=== PATIENT | female | born 1945 ===

== ENCOUNTER 2016-12-07 03:42 | Emergency (ER) | payer MEDICARE, MEDICAID ==
[2016-12-07 03:58] VITALS: TEMP 97.9; O2SAT 98
[2016-12-07] MEDS ORDERED: Sodium Chloride 0.9% 1,000 ML IV ONE (04:12)
--- NOTE | 2016-12-07 04:12 | C.PDOC ---
History Of Present Illness Patient presents to the ER with a complaint of dysuria and urinary incontinence that has been worsening over the last few days and is worse tonight. Patient also complains of flank pain. Denies fever and chills. Time Seen by Provider: 12/07/16 04:07 Chief Complaint (Nursing): Female Genitourinary History Per: Patient History/Exam Limitations: no limitations Onset/Duration Of Symptoms: Hrs (Worse tonight), Days Current Symptoms Are (Timing): Still Present Context: Other (Urinary symptoms) Severity: Moderate Pain Scale Rating Of: 4 Location Of Pain/Discomfort: Other (Flank) Radiation Of Pain To:: None Quality Of Discomfort: Unable To Describe Associated Symptoms: Urinary Symptoms (Dysuria, incontinence). denies: Fever, Chills Exacerbating Factors: None Alleviating Factors: None Last Bowel Movement: Other (Not known) Additional History Per: Patient Abnormal Vaginal Bleeding: No Past Medical History Reviewed: Historical Data, Nursing Documentation, Vital Signs Vital Signs: Last Vital Signs Temp 97.9 F 12/07/16 03:53 Pulse 93 H 12/07/16 03:53 Resp 20 12/07/16 03:53 BP 136/81 12/07/16 03:53 Pulse Ox 98 12/07/16 06:33 - Medical History PMH: Diabetes, HTN, Hypercholesterolemia, Kidney Stones - [facility] Procedures CLOSURE SKIN & SUBCUTANEOUS NEC (11/10/14) Family History: States: No Known Family Hx - Social History Hx Tobacco Use: No Hx Alcohol Use: No Hx Substance Use: No - Immunization History Hx Tetanus Toxoid Vaccination: No Hx Influenza Vaccination: No Hx Pneumococcal Vaccination: No Review Of Systems Constitutional: Negative for: Fever, Chills Genitourinary: Positive for: Dysuria, Incontinence Musculoskeletal: Positive for: Other (Flank pain) Physical Exam - Physical Exam Appears: Well, Non-toxic Skin: Warm, Dry Oral Mucosa: Moist Chest: Symmetrical, No Tenderness Cardiovascular: Rhythm Regular, No Murmur Respiratory: No Rales, No Rhonchi, No Wheezing Gastrointestinal/Abdominal: Soft, No Tenderness, Other (Right midline colostomy surgical scar.) Back: No CVA Tenderness Neurological/Psych: Oriented x3 ED Course And Treatment - Laboratory Results Result Diagrams: 12/07/16 04:40 12/07/16 04:40 O2 Sat by Pulse Oximetry: 98 (Room air) Pulse Ox Interpretation: Normal - CT Scan/US CT abd/pelvis w/ IV contrast Other Rad Studies (CT/US): Read By Radiologist, Radiology Report Reviewed CT/US Interpretation: IMPRESSION: 1. Cholelithiasis, no CT evidence of acute cholecystitis. 2. Mild distention of renal collecting system without ureteral calculus, probably physiologic secondary. to iliac crossing. 3. Remaining findings as above. Progress Note: Blood work and urinalysis ordered. Toradol IVP, zofran IVP, and IV fluids administered. Reevaluation Time: 06:34 Reassessment Condition: Improved Medical Decision Making Medical Decision Making: Upon provider reevaluation patient is feeling better, is medically stable, and requires no further treatment in the ED at this time. Patient will be discharged home with Rx for macrobid and pyridium . Counseling was provided and all questions were answered regarding diagnosis and need for follow up with Dr alcala. There is agreement to discharge plan. Return if symptoms persist or worsen. Disposition Counseled Patient/Family Regarding: Studies Performed, Diagnosis, Need For Followup, Rx Given - Disposition Referrals: Shaik Alcala MD [Staff Provider] - Disposition: HOME/ ROUTINE Disposition Time: 04:12 Condition: FAIR Prescriptions: Nitrofurantoin Macrocrystals [Macrobid] 1 cap PO BID #14 cap Phenazopyridine HCl [Pyridium] 200 mg PO TID #6 tablet Instructions: Urinary Tract Infection in Women (DC) Print Language: LUXEMBOURGISH - Clinical Impression Clinical Impression: UTI (urinary tract infection) - Scribe Statement The provider has reviewed the documentation as recorded by the Scribdeborah Martinez All medical record entries made by the Scribe were at my direction and personally dictated by me. I have reviewed the chart and agree that the record accurately reflects my personal performance of the history, physical exam, medical decision making, and the department course for this patient. I have also personally directed, reviewed, and agree with the discharge instructions and disposition.
[2016-12-07 04:15] LABS: RBC URINE 1075 /hpf (0-3); URINE BACTERIA OCC (<OCC); URINE BILIRUBIN NEGATIVE (NEGATIVE); URINE BLOOD 3+ (NEGATIVE); URINE COLOR Yellow (YELLOW); URINE GLUCOSE (UA) NORMAL (Normal); URINE KETONE NEGATIVE (NEGATIVE); URINE LEUKOCYTE ESTERASE 3+ Leu/uL (Negative); URINE PROTEIN 2+ mg/dL (NEGATIVE); URINE UROBILINOGEN NORMAL mg/dL (0.2-1.0); WBC URINE 1454 /hpf (0-5)
[2016-12-07] MEDS ORDERED: Piperacillin/Tazobact 3.375 gm 100 ML IVPB STA (04:16)
[2016-12-07] MEDS ORDERED: Piperacillin/Tazobact 3.375 gm 100 ML IVPB ONE (04:36)
[2016-12-07] MEDS ORDERED: Sodium Chloride 0.9% 1,000 ML ONE (04:36)
[2016-12-07 04:48] LABS: BASO # 0.1 K/uL (0.0-0.2); BASO % 0.5 % (0.0-2.0); EOS % 0.3 % (0.0-4.0); HEMATOCRIT 38.3 % (34.0-47.0); LYMPH # 1.9 K/uL (1.0-4.3); LYMPH % 16.2 % (20.0-40.0); MEAN CELL VOLUME 85.5 fL (81.0-99.0); MEAN CORPUSCULAR HEMOGLOBIN 28.4 pg (27.0-31.0); MEAN CORPUSCULAR HGB CONC 33.2 g/dL (33.0-37.0); MEAN PLATELET VOLUME 7.9 fL (7.2-11.7); MONO # 0.9 K/uL (0.0-0.8); MONO % 7.2 % (0.0-10.0); RED CELL DISTRIBUTION WIDTH 13.4 % (11.5-14.5)
[2016-12-07 04:55] LABS: POTASSIUM 4.5 mmol/L (3.6-5.2)
[2016-12-07 04:57] LABS: BILIRUBIN,TOTAL 0.8 mg/dL (0.2-1.3)
[2016-12-07 04:58] LABS: ALB/GLOB RATIO 1.5 (1.0-2.1); CALCIUM 9.9 mg/dl (8.6-10.4)
[2016-12-07] MEDS ORDERED: Iohexol 350mg/ml 100 ML ONE (05:33)
--- NOTE | 2016-12-07 06:30 | CT ---
EXAM: CT Abdomen and Pelvis With Intravenous Contrast CLINICAL HISTORY: 70 years old, female; Pain; Abdominal pain; Prior surgery; Surgery type: Colostomy; Additional info: R flank pain, TECHNIQUE: Axial computed tomography images of the abdomen and pelvis with intravenous contrast. This CT exam was performed using one or more of the following dose reduction techniques: automated exposure control, adjustment of the mA and/or kV according to patient size, and/or use of iterative reconstruction technique. Coronal and sagittal reformatted images were created and reviewed. CONTRAST: 100 mL of [id number] administered intravenously. EXAM DATE/TIME: 12/07/2016 5:09 AM COMPARISON: No relevant prior studies available. FINDINGS: Lower thorax: No acute findings. ABDOMEN: Liver: Fatty liver. Gallbladder and bile ducts: Gallstones. No ductal dilation. Pancreas: Unremarkable. No mass. No ductal dilation. Spleen: Unremarkable. No splenomegaly. Adrenals: Unremarkable. No mass. Kidneys and ureters: Mild distention of renal collecting system up to upper pelvis. No demonstrable ureteral calculus. Symmetrical nephrograms. No hydronephrosis. Stomach and bowel: Right lower quadrant ostomy. No dilatation of small or large bowel. Appendix: Normal. PELVIS: Bladder: Under distended bladder. Reproductive: Unremarkable as visualized. ABDOMEN and PELVIS: Intraperitoneal space: Unremarkable. No free air. No significant fluid collection. Bones/joints: No acute fracture. Soft tissues: Unremarkable. Vasculature: Unremarkable. No abdominal aortic aneurysm. Lymph nodes: No enlarged lymph nodes. Other findings: Scattered surgical clips in left upper and right lower quadrants, pelvis. IMPRESSION: 1. Cholelithiasis, no CT evidence of acute cholecystitis. 2. Mild distention of renal collecting system without ureteral calculus, probably physiologic secondary to iliac crossing. 3. Remaining findings as above.
[2016-12-07 06:48] VITALS: BP 94/55; PULSE 81; RESP 18
== END 2016-12-07 07:18 | disposition home or self-care (01) ==
LOC: C.ER 03:42
DX: N39.0 Urinary tract infection, site not specified (principal)
CPT/HCPCS: 74177; 80053; 81001; 83690; 85025; 85610; 85730; 87086; 87181; 96365; 96375; 99284; J1885; J2405; J2543; J7040; Q9967

== ENCOUNTER 2016-12-28 03:35 | Inpatient (IN) | payer MEDICARE, MEDICAID ==
--- NOTE | 2016-12-28 03:47 | C.PDOC ---
History Of Present Illness Patient presents to the ER with a complaint of sharp, stabbing, right sided abdominal pain since last night. Denies fever or chills. Time Seen by Provider: 12/28/16 03:47 Chief Complaint (Nursing): Abdominal Pain History Per: Patient History/Exam Limitations: no limitations Onset/Duration Of Symptoms: Days (Last night) Current Symptoms Are (Timing): Still Present Severity: Moderate Pain Scale Rating Of: 5 Location Of Pain/Discomfort: RUQ, RLQ Radiation Of Pain To:: None Quality Of Discomfort: Sharp, Stabbing Associated Symptoms: denies: Fever, Chills Exacerbating Factors: None Alleviating Factors: None Recent travel outside of the [place]: No Abnormal Vaginal Bleeding: No Past Medical History Reviewed: Historical Data, Nursing Documentation, Vital Signs Vital Signs: Last Vital Signs Temp 98.8 F 12/28/16 03:46 Pulse 88 12/28/16 03:46 Resp 16 12/28/16 03:46 BP 117/77 12/28/16 03:46 Pulse Ox 97 12/28/16 03:46 - Medical History PMH: Diabetes, HTN, Hypercholesterolemia, Kidney Stones Surgical History: No Surg Hx - [facility] Procedures CLOSURE SKIN & SUBCUTANEOUS NEC (11/10/14) Family History: States: Unknown Family Hx - Social History Hx Tobacco Use: No Hx Alcohol Use: No Hx Substance Use: No - Immunization History Hx Tetanus Toxoid Vaccination: No Hx Influenza Vaccination: No Hx Pneumococcal Vaccination: No Review Of Systems Constitutional: Negative for: Fever, Chills Eyes: Negative for: Pain ENT: Negative for: Throat Pain Cardiovascular: Negative for: Chest Pain Respiratory: Negative for: Shortness of Breath Gastrointestinal: Positive for: Abdominal Pain (Right sided) Genitourinary: Negative for: Dysuria Musculoskeletal: Negative for: Back Pain Skin: Positive for: Jaundice (mild). Negative for: Rash, Lesions, Bruising Neurological: Negative for: Weakness Psych: Negative for: Anxiety Physical Exam - Physical Exam Appears: Non-toxic Skin: Warm, Dry Head: Normacephalic Eye(s): bilateral: Normal Inspection Oral Mucosa: Moist Neck: Supple Chest: Symmetrical, No Tenderness Cardiovascular: Rhythm Regular, No Murmur Respiratory: No Rales, No Rhonchi, No Wheezing Gastrointestinal/Abdominal: Bowel Sounds (Decreased), Soft, Tenderness (right sided), Other (Colostomy on right side, empty bag. Numerous surgical scars.) Back: Normal Inspection Extremity: Normal ROM Extremity: Bilateral: Atraumatic, Normal Color And Temperature Neurological/Psych: Oriented x3 Gait: Steady ED Course And Treatment - Laboratory Results Result Diagrams: 12/28/16 04:24 12/28/16 04:24 Progress Note: Blood work and urinalysis ordered. Pepcid, zofran, morpine and IV fluids administered. Disposition Discussed With Dr.: Yamile Wilder Counseled Patient/Family Regarding: Studies Performed, Diagnosis - Disposition Disposition: HOSPITALIZED Disposition Time: 03:47 Condition: FAIR - POA Present On Arrival: Poor Glycemic Control - Clinical Impression Clinical Impression: Abdominal pain, Jaundice - Scribe Statement The provider has reviewed the documentation as recorded by the Scribdeborah Martinez All medical record entries made by the Nevaibdeborah were at my direction and personally dictated by me. I have reviewed the chart and agree that the record accurately reflects my personal performance of the history, physical exam, medical decision making, and the department course for this patient. I have also personally directed, reviewed, and agree with the discharge instructions and disposition. Decision To Admit - Pt Status Changed To: Hospital Disposition Of: Observation - . Bed Request Type: Regular Admitting Physician: Yamile Wilder Patient Diagnosis: Abdominal pain, Jaundice
[2016-12-28 03:49] VITALS: BMI 34.7
[2016-12-28] MEDS ORDERED: Sodium Chloride 0.9% 1,000 ML IV ONE (03:49)
[2016-12-28] MEDS ORDERED: Morphine 4 MG/ML VIAL ONE (03:59)
[2016-12-28] MEDS ORDERED: Sodium Chloride 0.9% 1,000 ML ONE (04:00)
[2016-12-28 04:27] LABS: BASO # 0.1 K/uL (0.0-0.2); BASO % 0.8 % (0.0-2.0); HEMATOCRIT 35.6 % (34.0-47.0); LYMPH # 1.5 K/uL (1.0-4.3); LYMPH % 17.6 % (20.0-40.0); MEAN CELL VOLUME 84.9 fL (81.0-99.0); MEAN CORPUSCULAR HEMOGLOBIN 29.4 pg (27.0-31.0); MEAN CORPUSCULAR HGB CONC 34.7 g/dL (33.0-37.0); MONO # 0.7 K/uL (0.0-0.8); MONO % 8.6 % (0.0-10.0); RED CELL DISTRIBUTION WIDTH 13.3 % (11.5-14.5); WHITE BLOOD COUNT 8.4 K/uL (4.8-10.8)
[2016-12-28 04:35] LABS: INR 1.1
[2016-12-28 04:38] LABS: CHLORIDE 101 mmol/L (98-107)
[2016-12-28 04:39] LABS: POTASSIUM 5.5 mmol/L (3.6-5.2); SODIUM 134 mmol/L (132-148)
[2016-12-28 04:41] LABS: ALB/GLOB RATIO 1.3 (1.0-2.1); ALKALINE PHOSPHATASE 67 U/L (38-126); AST/SGOT 47 U/L (14-36); BILIRUBIN,TOTAL 1.7 mg/dL (0.2-1.3); BLOOD UREA NITROGEN 13 mg/dL (7-17); CARBON DIOXIDE 22 mmol/L (22-30); GFR AFRICAN-AMERICAN > 60; TOTAL PROTEIN 7.5 g/dL (6.3-8.3)
[2016-12-28 04:42] LABS: ALT/SGPT 41 U/L (9-52); CALCIUM 8.4 mg/dl (8.6-10.4); GLUCOSE,RANDOM 182 mg/dL (65-105)
[2016-12-28 06:41] LABS: RBC URINE 4 /hpf (0-3); URINE BILIRUBIN NEGATIVE (NEGATIVE); URINE BLOOD NEGATIVE (NEGATIVE); URINE COLOR Yellow (YELLOW); URINE GLUCOSE (UA) NORMAL (Normal); URINE KETONE NEGATIVE (NEGATIVE); URINE LEUKOCYTE ESTERASE NEG Leu/uL (Negative); URINE PROTEIN NEGATIVE (NEGATIVE); URINE UROBILINOGEN NORMAL mg/dL (0.2-1.0); WBC URINE 2 /hpf (0-5)
--- NOTE | 2016-12-28 15:52 | RAD ---
PROCEDURE: Radiographs of the chest and abdomen (obstructive series) HISTORY: abd pain, COMPARISON: No prior. TECHNIQUE: AP radiograph of the chest, with upright and supine radiographs of the abdomen. FINDINGS: CHEST: Lungs: Clear. Cardiovascular: Normal size heart. No pulmonary vascular congestion. Pleura: No pleural fluid. No pneumothorax. Other findings: None. ABDOMEN AND PELVIS: Bowel: No evidence of bowel obstruction. There is a generalized paucity of bowel gas. There is no hepatic or splenic enlargement appreciated. There are no masses or abnormal intra-abdominal calcifications. Multiple surgical clips are identified. Free air: None. Bones: Unremarkable. Other findings: None. IMPRESSION: Unremarkable radiographs of chest and abdomen. No evidence of mechanical bowel obstruction.
--- NOTE | 2016-12-28 16:01 | CP.PCM.CON ---
<Corinna Seymour - Last Filed: 12/28/16 16:44> History of Present Illness - History of Present Illness History of Present Illness: Gastroenterology Fellow/PGY4 Consult Note 71 year old female with history of Hypertension, Diabetes, and Hyperlipidemia presenting with abdominal pain. Patient is a poor history and hard of hearing failed attempts at history taking via son by telephone and Luv Rinkracom interpretation. Nursing staff assisted with attempted history taking below. Patient is oriented to person, place, and time. She describes progressive, right upper abdomen stabbing pain radiating to back since "yesterday after taking antibiotics from ER visit December 07 for an Ecoli UTI. Associated only with chills. Denies fever, sweats, nausea, vomiting, heartburn, indigestion, acid reflux, diarrhea, constipation, melena, hematochezia, hematemesis, or weight loss. She does not answering additional questioning with frequent change in topic from current inpatient stay. She is concerned her symptoms are similar to a "bad infection" 37 years ago leading to colostomy bag endorsed to be performed at [facility]. Prior colonoscopy endorsed to be prior to colostomy surgery 37 years ago. No prior EGD. Family- nephew with colostomy, cancer history unknown Social- denies tobacco, alcohol, illicit drugs Surgery- colostomy, Review of Systems - Review of Systems Review of Systems: A 12-point review of systems negative except for as above Past Patient History - Infectious Disease Hx of Infectious Diseases: None - Past Medical History & Family History Past Medical History?: Yes - Past Social History Smoking Status: Never Smoked - CARDIAC Hx Hypercholesterolemia: Yes Hx Hypertension: Yes - PULMONARY Hx Respiratory Disorders: No - NEUROLOGICAL Hx Dizziness: Yes - HEENT Hx Blind: Yes - RENAL Hx Kidney Stones: Yes - ENDOCRINE/METABOLIC Hx Diabetes Mellitus Type 2: Yes - HEMATOLOGICAL/ONCOLOGICAL Hx Blood Disorders: No - INTEGUMENTARY Hx Dermatological Problems: No - MUSCULOSKELETAL/RHEUMATOLOGICAL Hx Falls: Yes - GASTROINTESTINAL Hx Colostomy: Yes - GENITOURINARY/GYNECOLOGICAL Hx Genitourinary Disorders: No Hx Urinary Tract Infection: Yes - PSYCHIATRIC Hx Substance Use: No - SURGICAL HISTORY Hx Surgeries: Yes Other/Comment: Colostomy more than 37 yrs ago - ANESTHESIA Hx Anesthesia: Yes Hx Anesthesia Reactions: No Hx Malignant Hyperthermia: No Meds Allergies/Adverse Reactions: Allergies Allergy/AdvReac Type Severity Reaction Status Date / Time No Known Allergies Allergy Verified 10/11/15 19:37 - Medications Medications: Current Medications Fenofibrate (Tricor) 145 mg PO DAILY [facility] Home Med (Simvastatin [Simvastatin]) 1 tab PO DAILY [facility] Dextrose/Sodium Chloride (Dextrose 5%/0.45% Ns 1000 Ml) 1,000 mls @ 75 mls/hr IV .[id number] [facility] Losartan Potassium (Cozaar) 25 mg PO DAILY [facility] Metformin HCl (Glucophage) 500 mg PO BIDCC [facility] Morphine Sulfate (Morphine) 2 mg IVP Q4 PRN PRN Reason: Pain, moderate (4-7) Ondansetron HCl (Zofran Inj) 4 mg IVP Q6H PRN PRN Reason: Nausea/Vomiting Pantoprazole Sodium (Protonix Ec Tab) 40 mg PO DAILY [facility] Sitagliptin Phosphate (Januvia) 50 mg PO BID [facility] Physical Exam - Constitutional Appears: Non-toxic, No Acute Distress - Head Exam Head Exam: ATRAUMATIC, NORMOCEPHALIC - Eye Exam Eye Exam: EOMI, PERRL Pupil Exam: PERRL. absent: Miosis, Mydriatic - ENT Exam ENT Exam: Mucous Membranes Moist, Normal Oropharynx - Neck Exam Neck exam: Positive for: Full Rom, Normal Inspection - Respiratory Exam Respiratory Exam: Clear to Auscultation Bilateral. absent: Rales, Rhonchi, Wheezes - Cardiovascular Exam Cardiovascular Exam: RRR, +S1, +S2. absent: Gallop, Rubs - GI/Abdominal Exam GI & Abdominal Exam: Guarding, Normal Bowel Sounds, Soft, Tenderness. absent: Distended, Firm, Organomegaly, Rebound, Rigid Additional comments: RUQ tenderness to palpation, RLQ colostomy with soft green stool, stoma with pink hue, vertical surgical scar - Extremities Exam Extremities exam: Positive for: full ROM, pedal edema - Neurological Exam Neurological exam: Alert, Oriented x3 - Psychiatric Exam Psychiatric exam: Normal Affect, Normal Mood - Skin Skin Exam: Dry, Intact, Normal Color, Warm Results - Vital Signs Recent Vital Signs: Last Vital Signs Temp 98.7 F 12/28/16 06:44 Pulse 72 12/28/16 06:44 Resp 20 12/28/16 06:44 BP 123/49 L 12/28/16 06:44 Pulse Ox 95 12/28/16 06:44 - Labs Result Diagrams: 12/28/16 04:24 12/28/16 04:24 Labs: Laboratory Results - last 24 hr 12/28/16 12/28/16 12/28/16 06:29 12:42 12:42 POC Glucose (mg/dL) 168 H 168 H Urine Color Yellow Urine Clarity Clear Urine pH 7.0 Ur Specific [place] 1.016 Urine Protein Negative Urine Glucose (UA) Normal Urine Ketones Negative Urine Blood Negative Urine Nitrate Negative Urine Bilirubin Negative Urine Urobilinogen Normal Ur Leukocyte Esterase Neg Urine WBC (Auto) 2 Urine RBC (Auto) 4 H Ur Squamous Epith Cells 1 Assessment & Plan - Assessment and Plan (Free Text) Assessment: 71 year old female with history of Hypertension, Diabetes, and Hyperlipidemia presenting with right upper abdomen pain. CT A/P IV contrast 12/07/16 showed gallstones and hepatic steatosis. Laboratory findings show hyperbilirubinemia and mildly elevated AST. Prior colonoscopy endorsed during hospitalization prior to colostomy surgery 37 years ago. No prior EGD. Plan: >Ultrasound ordered with history of gallstones >evaluate for cholecystitis and choledocholithiasis >ordered direct bilirubin, Hepatitis panel >LFTs tomorrow >ordered C diff, stool culture, fecal leukocytes with recent antibiotics >supportive care: pain control, IVFs >further recommendations based on ultrasound results <Bruce Peralta Y - Last Filed: 12/28/16 16:59> Meds - Medications Medications: Current Medications Fenofibrate (Tricor) 145 mg PO DAILY [facility] Dextrose/Sodium Chloride (Dextrose 5%/0.45% Ns 1000 Ml) 1,000 mls @ 75 mls/hr IV .[id number] [facility] Losartan Potassium (Cozaar) 25 mg PO DAILY [facility] Metformin HCl (Glucophage) 500 mg PO BIDCC [facility] Morphine Sulfate (Morphine) 2 mg IVP Q4 PRN PRN Reason: Pain, moderate (4-7) Ondansetron HCl (Zofran Inj) 4 mg IVP Q6H PRN PRN Reason: Nausea/Vomiting Pantoprazole Sodium (Protonix Ec Tab) 40 mg PO DAILY [facility] Rosuvastatin Calcium (Crestor) 2.5 mg PO HS [facility] Sitagliptin Phosphate (Januvia) 50 mg PO BID [facility] Results - Vital Signs Recent Vital Signs: Last Vital Signs Temp 98.7 F 12/28/16 06:44 Pulse 72 12/28/16 06:44 Resp 20 12/28/16 06:44 BP 123/49 L 12/28/16 06:44 Pulse Ox 95 12/28/16 06:44 - Labs Result Diagrams: 12/28/16 04:24 12/28/16 04:24 Labs: Laboratory Results - last 24 hr 12/28/16 12/28/16 12/28/16 06:29 12:42 12:42 POC Glucose (mg/dL) 168 H 168 H Urine Color Yellow Urine Clarity Clear Urine pH 7.0 Ur Specific [place] 1.016 Urine Protein Negative Urine Glucose (UA) Normal Urine Ketones Negative Urine Blood Negative Urine Nitrate Negative Urine Bilirubin Negative Urine Urobilinogen Normal Ur Leukocyte Esterase Neg Urine WBC (Auto) 2 Urine RBC (Auto) 4 H Ur Squamous Epith Cells 1 Attending/Attestation - Attestation I have personally seen and examined this patient.: Yes I have fully participated in the care of the patient.: Yes I have reviewed all pertinent clinical information: Yes Notes (Text): 12/28/16 16:52 I have seen and examined patient with GI fellow. Agree with above documentation with the following additions. In brief, this is a 71 year old female with history of DM, HTN, hyperlipidemia, prior colon resection for unknown cause s/p colostomy who presents to hospital with complaint of sudden onset abdominal pain. She describes a sharp, intermittent RUQ abdominal pain, 5 /10 intensity that began yesterday and radiates to back. There does not seem to be any relation to food consumption and she otherwise denies nausea, vomiting , diarrhea, fever/chills, weight loss, blood in stool, or change in bowel habits. Earlier this month she took antibiotic therapy for a UTI. Unclear regarding prior endoscopic history. DM / HTN Hyperlipidemia Right upper quadrant abdominal pain, transaminitis - Liquid diet as tolerated - Obtain abdominal US for further evaluation of gallbladder and biliary tree - Continue to monitor LFTs - Pain control - Obtain viral hepatitis panel and fractionate bilirubin - Pending results of studies, may consider surgical consultation - Will continue to monitor patient clinical course
[2016-12-28] MEDS: Dextrose 5%/0.45% NS 1,000 ML IV SCH (17:13)
[2016-12-28] MEDS: Pantoprazole 40 mg EC Tab PO SCH (17:13)
--- NOTE | 2016-12-28 18:58 | CP.PCM.HP ---
History of Present Illness - History of Present Illness History of Present Illness: 71-year-old female patient with past medical history of hypertension, diabetes and hyperlipidemia presented to the ER with complaint of abdominal pain. Patient is poor historian and hard of hearing failed attempt at history taking well son by telephone and THYMEracom interpretation. Nursing staff assisted with attempted history taking below. Patient is oriented to place, person and time. Patient described progressive, right upper abdomen stabbing pain radiating into back since yesterday after taking antibiotics from ER visit December 07 for an E. coli UTI. Associated only with chills. Denies fever, sweats, nausea, vomiting, heartburn, indigestion, acid reflux, diarrhea, constipation, melena, hematochezia, hematemesis or weight loss. Present on Admission - Present on Admission Any Indicators Present on Admission: No Past Patient History - Infectious Disease Hx of Infectious Diseases: None - Past Medical History & Family History Past Medical History?: Yes - Past Social History Smoking Status: Never Smoked - CARDIAC Hx Hypercholesterolemia: Yes Hx Hypertension: Yes - PULMONARY Hx Respiratory Disorders: No - NEUROLOGICAL Hx Dizziness: Yes - HEENT Hx Blind: Yes - RENAL Hx Kidney Stones: Yes - ENDOCRINE/METABOLIC Hx Diabetes Mellitus Type 2: Yes - HEMATOLOGICAL/ONCOLOGICAL Hx Blood Disorders: No - INTEGUMENTARY Hx Dermatological Problems: No - MUSCULOSKELETAL/RHEUMATOLOGICAL Hx Falls: Yes - GASTROINTESTINAL Hx Colostomy: Yes - GENITOURINARY/GYNECOLOGICAL Hx Genitourinary Disorders: No Hx Urinary Tract Infection: Yes - PSYCHIATRIC Hx Substance Use: No - SURGICAL HISTORY Hx Surgeries: Yes Other/Comment: Colostomy more than 37 yrs ago - ANESTHESIA Hx Anesthesia: Yes Hx Anesthesia Reactions: No Hx Malignant Hyperthermia: No Meds Home Medications: Home Medication List Medication Instructions Recorded Confirmed Type Ciprofloxacin [Cipro] 500 mg PO BID #14 tab 01/02/17 Rx metroNIDAZOLE [Flagyl] 500 mg PO Q8 #21 tab 01/02/17 Rx Allergies/Adverse Reactions: Allergies Allergy/AdvReac Type Severity Reaction Status Date / Time No Known Allergies Allergy Verified 10/11/15 19:37 Physical Exam - Constitutional Appears: Well - Head Exam Head Exam: ATRAUMATIC, NORMAL INSPECTION, NORMOCEPHALIC - Eye Exam Eye Exam: EOMI, Normal appearance, PERRL Pupil Exam: NORMAL ACCOMODATION, PERRL - ENT Exam ENT Exam: Mucous Membranes Moist, Normal Exam - Neck Exam Neck exam: Positive for: Normal Inspection - Respiratory Exam Respiratory Exam: Decreased Breath Sounds - Cardiovascular Exam Cardiovascular Exam: REGULAR RHYTHM, +S1, +S2 - GI/Abdominal Exam GI & Abdominal Exam: Diminished Bowel Sounds, Soft - Rectal Exam Rectal Exam: Deferred Results - Vital Signs Recent Vital Signs: Last Vital Signs Temp 98.7 F 12/28/16 16:00 Pulse 76 12/28/16 16:00 Resp 20 12/28/16 16:00 BP 154/75 H 12/28/16 16:00 Pulse Ox 95 12/28/16 16:00 - Labs Result Diagrams: 01/02/17 12:05 01/02/17 12:31 Labs: Laboratory Results - last 24 hr 12/28/16 12/28/16 12/28/16 06:29 12:42 12:42 POC Glucose (mg/dL) 168 H 168 H Urine Color Yellow Urine Clarity Clear Urine pH 7.0 Ur Specific [place] 1.016 Urine Protein Negative Urine Glucose (UA) Normal Urine Ketones Negative Urine Blood Negative Urine Nitrate Negative Urine Bilirubin Negative Urine Urobilinogen Normal Ur Leukocyte Esterase Neg Urine WBC (Auto) 2 Urine RBC (Auto) 4 H Ur Squamous Epith Cells 1 12/28/16 17:07 POC Glucose (mg/dL) 195 H Urine Color Urine Clarity Urine pH Ur Specific [place] Urine Protein Urine Glucose (UA) Urine Ketones Urine Blood Urine Nitrate Urine Bilirubin Urine Urobilinogen Ur Leukocyte Esterase Urine WBC (Auto) Urine RBC (Auto) Ur Squamous Epith Cells Assessment & Plan (1) Abdominal pain Status: Acute (2) Bronchitis Status: Acute (3) Headache Status: Acute (4) Influenza-like illness Status: Acute (5) Jaundice Status: Acute (6) Removal of andria Status: Acute (7) Syncope Status: Acute (8) UTI (urinary tract infection) Status: Acute - Assessment and Plan (Free Text) Plan: Consult GI USG abdomen findings concerning for acute cholecystitis, impacted gallstone, pericholecystic fluid and positive sonographic Estrada sign TriCor IV fluid Cozaar Morphine Zofran Protonix
[2016-12-28 19:52] LABS: BILIRUBIN,DIRECT 0.6 mg/dL (0.0-0.4)
[2016-12-28] MEDS: Rosuvastatin Calcium 2.5 mg Tab PO SCH (22:09)
[2016-12-29] MEDS: Dextrose 5%/0.45% NS 1,000 ML IV SCH ×2 (04:05→17:51)
[2016-12-29] MEDS: Pantoprazole 40 mg EC Tab PO SCH (10:26)
--- NOTE | 2016-12-29 11:15 | CP.PCM.PN ---
Subjective - Date & Time of Evaluation Date of Evaluation: 12/29/16 Time of Evaluation: 11:10 - Subjective Subjective: Patient seen and examined. No acute events. C/o RUQ abdominal pain. Colostomy with liquid green/bilious output. She is tolerating liquid diet. ROS otherwise negative in detail Objective - Vital Signs/Intake and Output Vital Signs (last 24 hours): Temp Pulse Resp BP Pulse Ox 98.7 F 81 20 129/61 95 12/29/16 07:09 12/29/16 07:09 12/29/16 07:09 12/29/16 07:09 12/29/16 07:09 Intake and Output: 12/29/16 12/29/16 06:59 18:59 Intake Total 1360 Balance 1360 - Medications Medications: Current Medications Fenofibrate (Tricor) 145 mg PO DAILY [facility] Last Admin: 12/29/16 10:25 Dose: 145 mg Dextrose/Sodium Chloride (Dextrose 5%/0.45% Ns 1000 Ml) 1,000 mls @ 75 mls/hr IV .[id number] [facility] Last Admin: 12/29/16 04:05 Dose: Not Given Losartan Potassium (Cozaar) 25 mg PO DAILY [facility] Last Admin: 12/29/16 10:26 Dose: 25 mg Metformin HCl (Glucophage) 500 mg PO BIDCC [facility] Last Admin: 12/29/16 08:45 Dose: 500 mg Morphine Sulfate (Morphine) 2 mg IVP Q4 PRN PRN Reason: Pain, moderate (4-7) Last Admin: 12/29/16 10:34 Dose: 2 mg Ondansetron HCl (Zofran Inj) 4 mg IVP Q6H PRN PRN Reason: Nausea/Vomiting Pantoprazole Sodium (Protonix Ec Tab) 40 mg PO DAILY [facility] Last Admin: 12/29/16 10:26 Dose: 40 mg Rosuvastatin Calcium (Crestor) 2.5 mg PO HS [facility] Last Admin: 12/28/16 22:09 Dose: 2.5 mg Sitagliptin Phosphate (Januvia) 50 mg PO BID [facility] Last Admin: 12/29/16 10:25 Dose: 50 mg - Labs Labs: PT 12.0 SECONDS (9.7-12.2) 12/28/16 04:24 INR 1.1 12/28/16 04:24 APTT 30 SECONDS (21-34) 12/28/16 04:24 - Constitutional Appears: No Acute Distress - Eye Exam Eye Exam: absent: Scleral icterus - ENT Exam ENT Exam: Mucous Membranes Moist - Respiratory Exam Respiratory Exam: Clear to Ausculation Bilateral - Cardiovascular Exam Cardiovascular Exam: +S1, +S2 - GI/Abdominal Exam Additional comments: abdomen soft, +RUQ tenderness to palpation, +colostomy with bilious output, multiple well healed surgical scars - Extremities Exam Extremities Exam: absent: Pedal Edema - Back Exam Back Exam: absent: CVA tenderness (L), CVA tenderness (R) - Neurological Exam Neurological Exam: Alert, Oriented x3 - Skin Skin Exam: Dry Assessment and Plan - Assessment and Plan (Free Text) Assessment: 71 year old female with history of HTN, DM, HL, colostomy who presents with RUQ abdominal pain. Plan: Continue supportive care Follow up LFTs Awaiting results of abdominal sonogram Antiemetic as needed Pain control as needed Further recommendations pending sonogram results
--- NOTE | 2016-12-29 13:48 | CP.PCM.PN ---
Subjective - Date & Time of Evaluation Date of Evaluation: 12/29/16 Time of Evaluation: 10:40 - Subjective Subjective: clinically same Objective - Vital Signs/Intake and Output Vital Signs (last 24 hours): Temp Pulse Resp BP Pulse Ox 98.7 F 81 20 129/61 95 12/29/16 07:09 12/29/16 07:09 12/29/16 07:09 12/29/16 07:09 12/29/16 07:09 Intake and Output: 12/29/16 12/29/16 06:59 18:59 Intake Total 1360 Balance 1360 - Medications Medications: Current Medications Fenofibrate (Tricor) 145 mg PO DAILY [facility] Last Admin: 12/29/16 10:25 Dose: 145 mg Dextrose/Sodium Chloride (Dextrose 5%/0.45% Ns 1000 Ml) 1,000 mls @ 75 mls/hr IV .[id number] [facility] Last Admin: 12/29/16 04:05 Dose: Not Given Losartan Potassium (Cozaar) 25 mg PO DAILY [facility] Last Admin: 12/29/16 10:26 Dose: 25 mg [facility] ([facility]) [facility] Last Admin: 12/29/16 08:45 Dose: 500 mg Morphine Sulfate (Morphine) 2 mg IVP Q4 PRN PRN Reason: Pain, moderate (4-7) Last Admin: 12/29/16 10:34 Dose: 2 mg Ondansetron HCl (Zofran Inj) 4 mg IVP Q6H PRN PRN Reason: Nausea/Vomiting Pantoprazole Sodium (Protonix Ec Tab) 40 mg PO DAILY [facility] Last Admin: 12/29/16 10:26 Dose: 40 mg Rosuvastatin Calcium (Crestor) 2.5 mg PO HS [facility] Last Admin: 12/28/16 22:09 Dose: 2.5 mg Sitagliptin Phosphate (Januvia) 50 mg PO BID [facility] Last Admin: 12/29/16 10:25 Dose: 50 mg - Labs Labs: PT 12.0 SECONDS (9.7-12.2) 12/28/16 04:24 INR 1.1 12/28/16 04:24 APTT 30 SECONDS (21-34) 12/28/16 04:24 - Constitutional Appears: Well - Head Exam Head Exam: ATRAUMATIC, NORMAL INSPECTION, NORMOCEPHALIC - Eye Exam Eye Exam: EOMI, Normal appearance, PERRL Pupil Exam: NORMAL ACCOMODATION, PERRL - ENT Exam ENT Exam: Mucous Membranes Moist, Normal Exam - Neck Exam Neck Exam: Full ROM, Normal Inspection. absent: Lymphadenopathy - Respiratory Exam Respiratory Exam: Decreased Breath Sounds - Cardiovascular Exam Cardiovascular Exam: REGULAR RHYTHM, +S1, +S2 - GI/Abdominal Exam GI & Abdominal Exam: Soft, Diminished Bowel Sounds - Rectal Exam Rectal Exam: Deferred Assessment and Plan (1) Abdominal pain Status: Acute (2) Bronchitis Status: Acute (3) Headache Status: Acute (4) Influenza-like illness Status: Acute (5) Jaundice Status: Acute (6) Removal of andria Status: Acute (7) Syncope Status: Acute (8) UTI (urinary tract infection) Status: Acute - Assessment and Plan (Free Text) Plan: Follow-up with GI Follow-up with general surgeon Follow-up with LFT [facility] IV fluid IV antibiotic Cozaar Morphine Zofran
[2016-12-29] MEDS: Piperacillin/Tazobact 3.375 GM in Sodium Chloride 100 ML IVPB SCH ×2 (16:57→22:50)
--- NOTE | 2016-12-29 16:57 | CP.PCM.CON ---
<Renee Schmitt - Last Filed: 12/29/16 17:07> History of Present Illness - History of Present Illness History of Present Illness: GENERAL SURGERY CONSULT NOTE FOR DR. NESS 71yo F with PMHx of DM, HTN, cholelithiasis presented to the ED on 12/28/16 with RUQ abdominal pain that began 1 day prior. Patient is a poor historian. Information was obtained from patient using manager games, from her son, and from the EMR. The pain is located in the RUQ and radiates to the right back. She denies nausea or vomiting. She thought the pain was gas related. The output into her ostomy has been normal. The pain is still present but has improved since her admission. The pain is unrelated to food. Of note, patient was seen in the ED on 12/07 for UTI and given antibiotics. She had one episode of pain after taking yogurt during the antibiotics but the pain resolved. PMHx: DM, HTN, hyperlipidemia, kidney stones, cholelithiasis Surgeries: , "bad infection" leading to colon resection and RLQ colostomy Allergies: none Social history: occasional tobacco use when drinks Review of Systems - Review of Systems All systems: reviewed and no additional remarkable complaints except (as per HPI ) Past Patient History - Infectious Disease Hx of Infectious Diseases: None - Past Medical History & Family History Past Medical History?: Yes - Past Social History Smoking Status: Never Smoked - CARDIAC Hx Hypercholesterolemia: Yes Hx Hypertension: Yes - PULMONARY Hx Respiratory Disorders: No - NEUROLOGICAL Hx Dizziness: Yes - HEENT Hx Blind: Yes - RENAL Hx Kidney Stones: Yes - ENDOCRINE/METABOLIC Hx Diabetes Mellitus Type 2: Yes - HEMATOLOGICAL/ONCOLOGICAL Hx Blood Disorders: No - INTEGUMENTARY Hx Dermatological Problems: No - MUSCULOSKELETAL/RHEUMATOLOGICAL Hx Falls: Yes - GASTROINTESTINAL Hx Colostomy: Yes - GENITOURINARY/GYNECOLOGICAL Hx Genitourinary Disorders: No Hx Urinary Tract Infection: Yes - PSYCHIATRIC Hx Substance Use: No - SURGICAL HISTORY Hx Surgeries: Yes Other/Comment: Colostomy more than 37 yrs ago - ANESTHESIA Hx Anesthesia: Yes Hx Anesthesia Reactions: No Hx Malignant Hyperthermia: No Meds Allergies/Adverse Reactions: Allergies Allergy/AdvReac Type Severity Reaction Status Date / Time No Known Allergies Allergy Verified 10/11/15 19:37 - Medications Medications: Current Medications Fenofibrate (Tricor) 145 mg PO DAILY [facility] Last Admin: 12/29/16 10:25 Dose: 145 mg Dextrose/Sodium Chloride (Dextrose 5%/0.45% Ns 1000 Ml) 1,000 mls @ 75 mls/hr IV .[id number] [facility] Last Admin: 12/29/16 04:05 Dose: Not Given Piperacillin Sod/Tazobactam (Sod 3.375 gm/ Sodium Chloride) 100 mls @ 200 mls/ hr IVPB Q6H [facility] Losartan Potassium (Cozaar) 25 mg PO DAILY [facility] Last Admin: 12/29/16 10:26 Dose: 25 mg [facility] Last Admin: 12/29/16 08:45 Dose: 500 mg Morphine Sulfate (Morphine) 2 mg IVP Q4 PRN PRN Reason: Pain, moderate (4-7) Last Admin: 12/29/16 10:34 Dose: 2 mg Ondansetron HCl (Zofran Inj) 4 mg IVP Q6H PRN PRN Reason: Nausea/Vomiting Pantoprazole Sodium (Protonix Ec Tab) 40 mg PO DAILY [facility] Last Admin: 12/29/16 10:26 Dose: 40 mg Rosuvastatin Calcium (Crestor) 2.5 mg PO HS [facility] Last Admin: 12/28/16 22:09 Dose: 2.5 mg Sitagliptin Phosphate (Januvia) 50 mg PO BID [facility] Last Admin: 12/29/16 10:25 Dose: 50 mg Physical Exam - Constitutional Appears: Non-toxic, No Acute Distress - Eye Exam Eye Exam: EOMI, Normal appearance - Respiratory Exam Respiratory Exam: NORMAL BREATHING PATTERN. absent: Respiratory Distress - Cardiovascular Exam Cardiovascular Exam: +S1, +S2 - GI/Abdominal Exam GI & Abdominal Exam: Soft, Tenderness (tender in RUQ). absent: Distended, Firm , Guarding, Rebound, Rigid Additional comments: Well healed midline abdominal scar RLQ ostomy with stool in bag + Estrada's sign - Back Exam Back exam: NORMAL INSPECTION - Neurological Exam Neurological exam: Alert, CN II-XII Intact, Oriented x3 - Psychiatric Exam Psychiatric exam: Normal Affect, Normal Mood - Skin Skin Exam: Normal Color, Warm Results - Vital Signs Recent Vital Signs: Last Vital Signs Temp 98.2 F 12/29/16 16:00 Pulse 80 12/29/16 16:00 Resp 18 12/29/16 16:00 BP 118/61 12/29/16 16:00 Pulse Ox 94 L 12/29/16 16:00 - Labs Result Diagrams: 12/28/16 04:24 12/28/16 04:24 Labs: Laboratory Results - last 24 hr 12/28/16 12/28/16 12/28/16 17:07 19:37 21:17 POC Glucose (mg/dL) 195 H 223 H Direct Bilirubin 0.6 H Amylase 80 Lipase Hepatitis A IgM Ab Hep Bs Antigen Hep B Core IgM Ab Hepatitis C Antibody 12/29/16 12/29/16 12/29/16 06:43 07:25 07:25 POC Glucose (mg/dL) 211 H Direct Bilirubin Amylase Lipase 98 Hepatitis A IgM Ab Negative Hep Bs Antigen Negative Hep B Core IgM Ab Negative Hepatitis C Antibody Negative Assessment & Plan - Assessment and Plan (Free Text) Assessment: 71yo F with PMHx of DM, HTN, cholelithiasis presented with RUQ abdominal pain and was found to have cholecystitis, hyperbilirubinemia r/o choledocholithiasis - Afebrile, VSS - No leukocytosis - T bili elevated at 1.7 - AST slightly elevated at 47 - Hepatitis panel negative - US: cholelithiasis, calculus impacted in gallbladder neck, marked thickening of gallbladder wall, up to 4mm, pericholecystic fluid, CBD 5mm. - MRCP ordered - Continue IV Zosyn - Discussed plan with Dr. Grover Schmitt PGY-2 <Devan Ness - Last Filed: 01/01/17 18:38> Meds - Medications Medications: Current Medications Fenofibrate (Tricor) 145 mg PO DAILY [facility] Last Admin: 01/01/17 09:07 Dose: 145 mg Piperacillin Sod/Tazobactam (Sod 3.375 gm/ Sodium Chloride) 100 mls @ 200 mls/ hr IVPB Q6H [facility] Last Admin: 01/01/17 11:25 Dose: 200 mls/hr Losartan Potassium (Cozaar) 25 mg PO DAILY [facility] Last Admin: 01/01/17 09:08 Dose: 25 mg Metformin HCl (Glucophage) 500 mg PO BIDCC [facility] Last Admin: 01/01/17 07:33 Dose: 500 mg Ondansetron HCl (Zofran Inj) 4 mg IVP Q6H PRN PRN Reason: Nausea/Vomiting Pantoprazole Sodium (Protonix Ec Tab) 40 mg PO DAILY [facility] Last Admin: 01/01/17 09:08 Dose: 40 mg Rosuvastatin Calcium (Crestor) 2.5 mg PO HS [facility] Last Admin: 12/31/16 22:05 Dose: 2.5 mg Sitagliptin Phosphate (Januvia) 50 mg PO BID [facility] Last Admin: 01/01/17 09:08 Dose: 50 mg Results - Vital Signs Recent Vital Signs: Last Vital Signs Temp 97.9 F 01/01/17 15:46 Pulse 73 01/01/17 15:46 Resp 20 01/01/17 15:46 BP 124/63 01/01/17 15:46 Pulse Ox 98 01/01/17 15:46 - Labs Result Diagrams: 12/31/16 11:44 12/31/16 11:44 Labs: Laboratory Results - last 24 hr 12/31/16 01/01/17 01/01/17 21:52 06:17 11:13 POC Glucose (mg/dL) 143 H 149 H 196 H 01/01/17 15:56 POC Glucose (mg/dL) 164 H Attending/Attestation - Attestation I have personally seen and examined this patient.: Yes I have fully participated in the care of the patient.: Yes I have reviewed all pertinent clinical information: Yes Notes (Text): 01/01/17 18:36 Pt was seen and examined at bedside on 12/30/16 Agree with above note and assessment Pt with Cholelithiasis with Abnormal LFTs Repeat LFTs, Possible MRCP Plan d.w pt in detail. C.w current mx
[2016-12-29 17:36] LABS: BASO % 0.4 % (0.0-2.0); EOS % 0.1 % (0.0-4.0); HEMATOCRIT 37.7 % (34.0-47.0); MEAN CELL VOLUME 85.8 fL (81.0-99.0); MEAN CORPUSCULAR HEMOGLOBIN 28.6 pg (27.0-31.0); MEAN CORPUSCULAR HGB CONC 33.4 g/dL (33.0-37.0); MEAN PLATELET VOLUME 8.3 fL (7.2-11.7); MONO # 1.2 K/uL (0.0-0.8); MONO % 10.9 % (0.0-10.0); RED CELL DISTRIBUTION WIDTH 12.9 % (11.5-14.5); WHITE BLOOD COUNT 11.3 K/uL (4.8-10.8)
[2016-12-29] MEDS: Rosuvastatin Calcium 2.5 mg Tab PO SCH (21:55)
[2016-12-29 22:55] LABS: CHLORIDE 100 mmol/L (98-107); INR 1.2; POTASSIUM 3.7 mmol/L (3.6-5.2); SODIUM 132 mmol/L (132-148)
[2016-12-29 22:57] LABS: GFR AFRICAN-AMERICAN > 60
[2016-12-29 22:58] LABS: ALB/GLOB RATIO 1.1 (1.0-2.1); ALKALINE PHOSPHATASE 57 U/L (38-126); ALT/SGPT 38 U/L (9-52); AST/SGOT 18 U/L (14-36); BLOOD UREA NITROGEN 6 mg/dL (7-17); CARBON DIOXIDE 24 mmol/L (22-30); GLUCOSE,RANDOM 315 mg/dL (65-105); TOTAL PROTEIN 5.9 g/dL (6.3-8.3)
[2016-12-29 22:59] LABS: CALCIUM 7.9 mg/dl (8.6-10.4)
[2016-12-30] MEDS: Piperacillin/Tazobact 3.375 GM in Sodium Chloride 100 ML IVPB SCH ×4 (04:32→22:18)
[2016-12-30] MEDS: Dextrose 5%/0.45% NS 1,000 ML IV SCH ×2 (06:30→22:20)
[2016-12-30 07:53] LABS: BASO % 0.5 % (0.0-2.0); EOS % 0.2 % (0.0-4.0); HEMATOCRIT 34.7 % (34.0-47.0); LYMPH # 1.4 K/uL (1.0-4.3); LYMPH % 20.4 % (20.0-40.0); MEAN CELL VOLUME 85.1 fL (81.0-99.0); MEAN CORPUSCULAR HEMOGLOBIN 29.1 pg (27.0-31.0); MEAN CORPUSCULAR HGB CONC 34.2 g/dL (33.0-37.0); MEAN PLATELET VOLUME 8.1 fL (7.2-11.7); MONO # 0.8 K/uL (0.0-0.8); MONO % 11.2 % (0.0-10.0); NRBC % 0.1 % (0.0-2.0); RED CELL DISTRIBUTION WIDTH 13.4 % (11.5-14.5); WHITE BLOOD COUNT 6.9 K/uL (4.8-10.8)
[2016-12-30 08:00] LABS: CHLORIDE 103 mmol/L (98-107)
[2016-12-30 08:01] LABS: POTASSIUM 3.8 mmol/L (3.6-5.2); SODIUM 136 mmol/L (132-148)
[2016-12-30 08:03] LABS: ALKALINE PHOSPHATASE 51 U/L (38-126); ALT/SGPT 27 U/L (9-52); AST/SGOT 20 U/L (14-36); BILIRUBIN,TOTAL 0.9 mg/dL (0.2-1.3); BLOOD UREA NITROGEN 8 mg/dL (7-17); CARBON DIOXIDE 22 mmol/L (22-30); GFR AFRICAN-AMERICAN > 60
[2016-12-30 08:04] LABS: CALCIUM 8.1 mg/dl (8.6-10.4); GLUCOSE,RANDOM 168 mg/dL (65-105)
--- NOTE | 2016-12-30 08:06 | CP.PCM.PN ---
<DawnCorinna - Last Filed: 12/30/16 09:51> Subjective - Date & Time of Evaluation Date of Evaluation: 12/30/16 Time of Evaluation: 08:03 - Subjective Subjective: Gastroenterology Fellow/PGY4 Progress Note Patient slept well. Continues to have right upper abdomen pin, Notes colostomy full with watery green stool and requesting change of bag. A 12-point review of systems negative except for as above. Objective - Vital Signs/Intake and Output Vital Signs (last 24 hours): Temp Pulse Resp BP Pulse Ox 98.3 F 72 20 130/68 97 12/30/16 07:20 12/30/16 07:20 12/30/16 07:20 12/30/16 07:20 12/30/16 07:20 Intake and Output: 12/30/16 12/30/16 06:59 18:59 Intake Total 560 Balance 560 - Medications Medications: Current Medications Fenofibrate (Tricor) 145 mg PO DAILY [facility] Last Admin: 12/29/16 10:25 Dose: 145 mg Dextrose/Sodium Chloride (Dextrose 5%/0.45% Ns 1000 Ml) 1,000 mls @ 75 mls/hr IV .[id number] [facility] Last Admin: 12/30/16 06:30 Dose: Not Given Piperacillin Sod/Tazobactam (Sod 3.375 gm/ Sodium Chloride) 100 mls @ 200 mls/ hr IVPB Q6H [facility] Last Admin: 12/30/16 04:32 Dose: 200 mls/hr Losartan Potassium (Cozaar) 25 mg PO DAILY [facility] Last Admin: 12/29/16 10:26 Dose: 25 mg Metformin HCl (Glucophage) 500 mg PO BIDCC [facility] Last Admin: 12/29/16 16:57 Dose: 500 mg Morphine Sulfate (Morphine) 2 mg IVP Q4 PRN PRN Reason: Pain, moderate (4-7) Last Admin: 12/29/16 22:00 Dose: 2 mg Ondansetron HCl (Zofran Inj) 4 mg IVP Q6H PRN PRN Reason: Nausea/Vomiting Pantoprazole Sodium (Protonix Ec Tab) 40 mg PO DAILY [facility] Last Admin: 12/29/16 10:26 Dose: 40 mg Rosuvastatin Calcium (Crestor) 2.5 mg PO HS [facility] Last Admin: 12/29/16 21:55 Dose: 2.5 mg Sitagliptin Phosphate (Januvia) 50 mg PO BID [facility] Last Admin: 12/29/16 17:49 Dose: 50 mg - Labs Labs: 12/30/16 07:11 12/29/16 22:35 PT 13.7 SECONDS (9.7-12.2) H 12/29/16 22:35 INR 1.2 12/29/16 22:35 APTT 31 SECONDS (21-34) 12/29/16 22:35 - Constitutional Appears: Non-toxic, No Acute Distress - Head Exam Head Exam: ATRAUMATIC, NORMOCEPHALIC - Eye Exam Eye Exam: EOMI, PERRL Pupil Exam: PERRL. absent: Miosis, Mydriatic - ENT Exam ENT Exam: Mucous Membranes Moist, Normal Oropharynx - Neck Exam Neck Exam: Full ROM, Normal Inspection - Respiratory Exam Respiratory Exam: Clear to Ausculation Bilateral. absent: Rales, Rhonchi, Wheezes - Cardiovascular Exam Cardiovascular Exam: RRR, +S1, +S2. absent: Gallop, Rubs - GI/Abdominal Exam GI & Abdominal Exam: Soft, Tenderness, Normal Bowel Sounds. absent: Distended, Firm, Guarding, Rigid, Rebound Additional comments: RUQ tenderness, colostomy RLQ with watery green stool - Extremities Exam Extremities Exam: Normal Inspection, Pedal Edema - Neurological Exam Neurological Exam: Alert, Awake - Psychiatric Exam Psychiatric exam: Normal Affect, Normal Mood - Skin Skin Exam: Dry, Intact, Normal Color, Warm Assessment and Plan - Assessment and Plan (Free Text) Assessment: 71 year old female with history of Hypertension, Diabetes, and Hyperlipidemia presenting with right upper abdomen pain. CT A/P IV contrast 12/07/16 showed gallstones and hepatic steatosis. Laboratory findings show hyperbilirubinemia and mildly elevated AST. Prior colonoscopy endorsed during hospitalization prior to colostomy surgery 37 years ago. No prior EGD. Plan: >Ultrasound taken,pending reprort >clinicla suspicion of cholecystitis >surgery managing-pending MRCP >Hepatitis panel negative >pending C diff, stool culture, fecal leukocytes with recent antibiotics >supportive care: pain control, IVFs >further recommendations based on MRCP results <Bruce Peralta Y - Last Filed: 12/30/16 10:00> Objective - Vital Signs/Intake and Output Vital Signs (last 24 hours): Temp Pulse Resp BP Pulse Ox 98.3 F 72 20 130/68 97 12/30/16 07:20 12/30/16 07:20 12/30/16 07:20 12/30/16 07:20 12/30/16 07:20 Intake and Output: 12/30/16 12/30/16 06:59 18:59 Intake Total 560 Balance 560 - Medications Medications: Current Medications Fenofibrate (Tricor) 145 mg PO DAILY [facility] Last Admin: 12/30/16 09:10 Dose: 145 mg Dextrose/Sodium Chloride (Dextrose 5%/0.45% Ns 1000 Ml) 1,000 mls @ 75 mls/hr IV .[id number] [facility] Last Admin: 12/30/16 06:30 Dose: Not Given Piperacillin Sod/Tazobactam (Sod 3.375 gm/ Sodium Chloride) 100 mls @ 200 mls/ hr IVPB Q6H [facility] Last Admin: 12/30/16 04:32 Dose: 200 mls/hr Losartan Potassium (Cozaar) 25 mg PO DAILY [facility] Last Admin: 12/30/16 09:10 Dose: 25 mg Metformin HCl (Glucophage) 500 mg PO BIDCC [facility] Last Admin: 12/30/16 08:51 Dose: Not Given Morphine Sulfate (Morphine) 2 mg IVP Q4 PRN PRN Reason: Pain, moderate (4-7) Last Admin: 12/29/16 22:00 Dose: 2 mg Ondansetron HCl (Zofran Inj) 4 mg IVP Q6H PRN PRN Reason: Nausea/Vomiting Pantoprazole Sodium (Protonix Ec Tab) 40 mg PO DAILY [facility] Last Admin: 12/30/16 09:13 Dose: 40 mg Rosuvastatin Calcium (Crestor) 2.5 mg PO HS [facility] Last Admin: 12/29/16 21:55 Dose: 2.5 mg Sitagliptin Phosphate (Januvia) 50 mg PO BID [facility] Last Admin: 12/30/16 09:00 Dose: Not Given - Labs Labs: 12/30/16 07:11 12/30/16 07:11 PT 13.7 SECONDS (9.7-12.2) H 12/29/16 22:35 INR 1.2 12/29/16 22:35 APTT 31 SECONDS (21-34) 12/29/16 22:35 Attending/Attestation - Attestation I have personally seen and examined this patient.: Yes I have fully participated in the care of the patient.: Yes I have reviewed all pertinent clinical information, including history, physical exam and plan: Yes Notes (Text): 12/30/16 09:56 I have seen and examined patient with GI fellow. No acute events overnight. She is seen resting in bed comfortably watching television. She continues to endorse RUQ abdominal pain, though slightly improved compared to prior. She denies nausea, vomiting, fever/chills. Review of vitals from today are normal. DM / HTN history of colostomy, unclear etiology Abdominal pain, cholelithiasis, ?cholecystitis - Continue with antibiotic therapy - Liquid diet, advance slowly as tolerated - Patient apparently had abdominal US performed with findings suspicious for acute cholecystitis, however report not available to be viewed - MRCP ordered by surgical team, however low probability of choledocholithiasis given completely normal LFTs, bilirubin - Follow up surgical recommendations - Will continue to monitor patient clinical course
[2016-12-30] MEDS: Pantoprazole 40 mg EC Tab PO SCH (09:13)
--- NOTE | 2016-12-30 10:42 | CP.PCM.PN ---
<Renee Schmitt - Last Filed: 12/30/16 16:11> Subjective - Date & Time of Evaluation Date of Evaluation: 12/30/16 Time of Evaluation: 07:00 - Subjective Subjective: GENERAL SURGERY PROGRESS NOTE FOR DR. NESS Patient seen and examined at bedside. She has mild RUQ abdominal pain but states it has improved from before. She denies nausea or vomiting. Objective - Vital Signs/Intake and Output Vital Signs (last 24 hours): Temp Pulse Resp BP Pulse Ox 98.3 F 72 20 130/68 97 12/30/16 07:20 12/30/16 07:20 12/30/16 07:20 12/30/16 07:20 12/30/16 07:20 Intake and Output: 12/30/16 12/30/16 06:59 18:59 Intake Total 560 Balance 560 - Medications Medications: Current Medications Fenofibrate (Tricor) 145 mg PO DAILY [facility] Last Admin: 12/30/16 09:10 Dose: 145 mg Dextrose/Sodium Chloride (Dextrose 5%/0.45% Ns 1000 Ml) 1,000 mls @ 75 mls/hr IV .[id number] [facility] Last Admin: 12/30/16 06:30 Dose: Not Given Piperacillin Sod/Tazobactam (Sod 3.375 gm/ Sodium Chloride) 100 mls @ 200 mls/ hr IVPB Q6H [facility] Last Admin: 12/30/16 04:32 Dose: 200 mls/hr Losartan Potassium (Cozaar) 25 mg PO DAILY [facility] Last Admin: 12/30/16 09:10 Dose: 25 mg Metformin HCl (Glucophage) 500 mg PO BIDCC [facility] Last Admin: 12/30/16 08:51 Dose: Not Given Morphine Sulfate (Morphine) 2 mg IVP Q4 PRN PRN Reason: Pain, moderate (4-7) Last Admin: 12/29/16 22:00 Dose: 2 mg Ondansetron HCl (Zofran Inj) 4 mg IVP Q6H PRN PRN Reason: Nausea/Vomiting Pantoprazole Sodium (Protonix Ec Tab) 40 mg PO DAILY [facility] Last Admin: 12/30/16 09:13 Dose: 40 mg Rosuvastatin Calcium (Crestor) 2.5 mg PO HS [facility] Last Admin: 12/29/16 21:55 Dose: 2.5 mg Sitagliptin Phosphate (Januvia) 50 mg PO BID [facility] Last Admin: 12/30/16 09:00 Dose: Not Given - Labs Labs: 12/30/16 07:11 12/30/16 07:11 PT 13.7 SECONDS (9.7-12.2) H 12/29/16 22:35 INR 1.2 12/29/16 22:35 APTT 31 SECONDS (21-34) 12/29/16 22:35 - Constitutional Appears: Non-toxic, No Acute Distress - Eye Exam Eye Exam: EOMI, Normal appearance - Respiratory Exam Respiratory Exam: NORMAL BREATHING PATTERN. absent: Respiratory Distress - Cardiovascular Exam Cardiovascular Exam: +S1, +S2 - GI/Abdominal Exam GI & Abdominal Exam: Soft, Tenderness (tender in RUQ). absent: Distended, Firm , Guarding, Rigid, Rebound Additional comments: RLQ ostomy in place with liquid stool in bag - Neurological Exam Neurological Exam: Alert, Awake, Oriented x3 - Psychiatric Exam Psychiatric exam: Normal Affect, Normal Mood - Skin Skin Exam: Normal Color, Warm Assessment and Plan - Assessment and Plan (Free Text) Assessment: 71yo F with PMHx of DM, HTN, cholelithiasis presented with RUQ abdominal pain and was found to have cholecystitis - Afebrile, VSS - No leukocytosis - T bili originally elevated at 1.7, now WNL - Hepatitis panel negative - US: cholelithiasis, calculus impacted in gallbladder neck, marked thickening of gallbladder wall, up to 10mm, pericholecystic fluid, CBD 5mm. - Canceled order for MRCP as bilirubin WNL the past 2 days. - Continue IV Zosyn, will treat patient with antibiotics for now and if continues to improve, will do outpatient elective cholecystectomy - If patient does not improve, will need impatient cholecystectomy - Clear liquid diet - Discussed plan with Dr. Grover Schmitt PGY-2 <Devan Ness - Last Filed: 01/01/17 18:39> Objective - Vital Signs/Intake and Output Vital Signs (last 24 hours): Temp Pulse Resp BP Pulse Ox 97.9 F 73 20 124/63 98 01/01/17 15:46 01/01/17 15:46 01/01/17 15:46 01/01/17 15:46 01/01/17 15:46 Intake and Output: 01/01/17 01/01/17 06:59 18:59 Intake Total 1275 Output Total 100 Balance 1175 - Medications Medications: Current Medications Fenofibrate (Tricor) 145 mg PO DAILY [facility] Last Admin: 01/01/17 09:07 Dose: 145 mg Piperacillin Sod/Tazobactam (Sod 3.375 gm/ Sodium Chloride) 100 mls @ 200 mls/ hr IVPB Q6H [facility] Last Admin: 01/01/17 11:25 Dose: 200 mls/hr Losartan Potassium (Cozaar) 25 mg PO DAILY [facility] Last Admin: 01/01/17 09:08 Dose: 25 mg Metformin HCl (Glucophage) 500 mg PO BIDCC [facility] Last Admin: 01/01/17 07:33 Dose: 500 mg Ondansetron HCl (Zofran Inj) 4 mg IVP Q6H PRN PRN Reason: Nausea/Vomiting Pantoprazole Sodium (Protonix Ec Tab) 40 mg PO DAILY [facility] Last Admin: 01/01/17 09:08 Dose: 40 mg Rosuvastatin Calcium (Crestor) 2.5 mg PO HS [facility] Last Admin: 12/31/16 22:05 Dose: 2.5 mg Sitagliptin Phosphate (Januvia) 50 mg PO BID [facility] Last Admin: 01/01/17 09:08 Dose: 50 mg - Labs Labs: 12/31/16 11:44 12/31/16 11:44 PT 13.7 SECONDS (9.7-12.2) H 12/29/16 22:35 INR 1.2 12/29/16 22:35 APTT 31 SECONDS (21-34) 12/29/16 22:35 Attending/Attestation - Attestation I have personally seen and examined this patient.: Yes I have fully participated in the care of the patient.: Yes I have reviewed all pertinent clinical information, including history, physical exam and plan: Yes Notes (Text): 01/01/17 18:39 Pt was seen and examined at bedside on 12/30/16 Agree with above note and assessment Pt with Cholelithiasis with Abnormal LFTs Repeat LFTs, Possible MRCP Plan d.w pt in detail. C.w current mx
--- NOTE | 2016-12-30 13:32 | CP.PCM.PN ---
Subjective - Date & Time of Evaluation Date of Evaluation: 12/30/16 Time of Evaluation: 10:00 - Subjective Subjective: clinically same Objective - Vital Signs/Intake and Output Vital Signs (last 24 hours): Temp Pulse Resp BP Pulse Ox 98.3 F 72 20 130/68 97 12/30/16 07:20 12/30/16 07:20 12/30/16 07:20 12/30/16 07:20 12/30/16 07:20 Intake and Output: 12/30/16 12/30/16 06:59 18:59 Intake Total 560 Balance 560 - Medications Medications: Current Medications Fenofibrate (Tricor) 145 mg PO DAILY [facility] Last Admin: 12/30/16 09:10 Dose: 145 mg Dextrose/Sodium Chloride (Dextrose 5%/0.45% Ns 1000 Ml) 1,000 mls @ 75 mls/hr IV .[id number] [facility] Last Admin: 12/30/16 06:30 Dose: Not Given Piperacillin Sod/Tazobactam (Sod 3.375 gm/ Sodium Chloride) 100 mls @ 200 mls/ hr IVPB Q6H [facility] Last Admin: 12/30/16 10:56 Dose: 200 mls/hr Losartan Potassium (Cozaar) 25 mg PO DAILY [facility] Last Admin: 12/30/16 09:10 Dose: [facility] mg [facility] Last Admin: 12/30/16 08:51 Dose: Not Given Morphine Sulfate (Morphine) 2 mg IVP Q4 PRN PRN Reason: Pain, moderate (4-7) Last Admin: 12/30/16 11:02 Dose: 2 mg Ondansetron HCl (Zofran Inj) 4 mg IVP Q6H PRN PRN Reason: Nausea/Vomiting Pantoprazole Sodium (Protonix Ec Tab) 40 mg PO DAILY [facility] Last Admin: 12/30/16 09:13 Dose: 40 mg Rosuvastatin Calcium (Crestor) 2.5 mg PO HS [facility] Last Admin: 12/29/16 21:55 Dose: 2.5 mg Sitagliptin Phosphate (Januvia) 50 mg PO BID [facility] Last Admin: 12/30/16 09:00 Dose: Not Given - Labs Labs: 12/30/16 07:11 12/30/16 07:11 PT 13.7 SECONDS (9.7-12.2) H 12/29/16 22:35 INR 1.2 12/29/16 22:35 APTT 31 SECONDS (21-34) 12/29/16 22:35 - Constitutional Appears: Well - Head Exam Head Exam: ATRAUMATIC, NORMAL INSPECTION, NORMOCEPHALIC - Eye Exam Eye Exam: EOMI, Normal appearance, PERRL Pupil Exam: NORMAL ACCOMODATION, PERRL - ENT Exam ENT Exam: Mucous Membranes Moist, Normal Exam - Neck Exam Neck Exam: Full ROM, Normal Inspection. absent: Lymphadenopathy - Respiratory Exam Respiratory Exam: Decreased Breath Sounds - Cardiovascular Exam Cardiovascular Exam: +S1, +S2 - GI/Abdominal Exam GI & Abdominal Exam: Soft, Diminished Bowel Sounds - Rectal Exam Rectal Exam: Deferred Assessment and Plan (1) Abdominal pain Status: Acute (2) Bronchitis Status: Acute (3) Headache Status: Acute (4) Influenza-like illness Status: Acute (5) Jaundice Status: Acute (6) Removal of andria Status: Acute (7) Syncope Status: Acute (8) UTI (urinary tract infection) Status: Acute - Assessment and Plan (Free Text) Plan: Follow-up with GI Follow-up with general surgeon Hepatitis panel negative TriCor IV fluid IV antibiotic Cozaar Morphine Zofran Proton
[2016-12-30] MEDS: Rosuvastatin Calcium 2.5 mg Tab PO SCH (22:18)
[2016-12-31] MEDS: Piperacillin/Tazobact 3.375 GM in Sodium Chloride 100 ML IVPB SCH ×4 (05:08→22:08)
--- NOTE | 2016-12-31 07:30 | CP.PCM.PN ---
<Corinna Seymour - Last Filed: 12/31/16 09:07> Subjective - Date & Time of Evaluation Date of Evaluation: 12/31/16 Time of Evaluation: : - Subjective Subjective: Gastroenterology Fellow/PGY4 Progress Note Patient slept well. Notes slight improvement in abdominal pain. Watery green stool present in colostomy. A 12-point review of systems negative except for as above. Objective - Vital Signs/Intake and Output Vital Signs (last 24 hours): Temp Pulse Resp BP Pulse Ox 98.1 F 81 20 105/68 96 12/31/16 06:56 12/31/16 06:56 12/31/16 06:56 12/31/16 06:56 12/31/16 06:56 - Medications Medications: Current Medications Fenofibrate (Tricor) 145 mg PO DAILY [facility] Last Admin: 12/30/16 09:10 Dose: 145 mg Dextrose/Sodium Chloride (Dextrose 5%/0.45% Ns 1000 Ml) 1,000 mls @ 75 mls/hr IV .[id number] [facility] Last Admin: 12/30/16 22:20 Dose: 75 mls/hr Piperacillin Sod/Tazobactam (Sod 3.375 gm/ Sodium Chloride) 100 mls @ 200 mls/ hr IVPB Q6H [facility] Last Admin: 12/31/16 05:08 Dose: 200 mls/hr Losartan Potassium (Cozaar) 25 mg PO DAILY [facility] Last Admin: 12/30/16 09:10 Dose: 25 mg Metformin HCl (Glucophage) 500 mg PO BIDCC [facility] Last Admin: 12/30/16 17:13 Dose: 500 mg Morphine Sulfate (Morphine) 2 mg IVP Q4 PRN PRN Reason: Pain, moderate (4-7) Last Admin: 12/30/16 22:59 Dose: 2 mg Ondansetron HCl (Zofran Inj) 4 mg IVP Q6H PRN PRN Reason: Nausea/Vomiting Pantoprazole Sodium (Protonix Ec Tab) 40 mg PO DAILY [facility] Last Admin: 12/30/16 09:13 Dose: 40 mg Rosuvastatin Calcium (Crestor) 2.5 mg PO HS [facility] Last Admin: 12/30/16 22:18 Dose: 2.5 mg Sitagliptin Phosphate (Januvia) 50 mg PO BID [facility] Last Admin: 12/30/16 17:13 Dose: 50 mg - Labs Labs: PT 13.7 SECONDS (9.7-12.2) H 12/29/16 22:35 INR 1.2 12/29/16 22:35 APTT 31 SECONDS (21-34) 12/29/16 22:35 - Constitutional Appears: Non-toxic, No Acute Distress - Head Exam Head Exam: ATRAUMATIC, NORMOCEPHALIC - Eye Exam Eye Exam: EOMI, PERRL Pupil Exam: PERRL. absent: Miosis, Mydriatic - ENT Exam ENT Exam: Mucous Membranes Moist, Normal Oropharynx - Neck Exam Neck Exam: Full ROM, Normal Inspection - Respiratory Exam Respiratory Exam: Clear to Ausculation Bilateral. absent: Rales, Rhonchi, Wheezes - Cardiovascular Exam Cardiovascular Exam: RRR, +S1, +S2. absent: Gallop, Rubs - GI/Abdominal Exam GI & Abdominal Exam: Soft, Tenderness, Normal Bowel Sounds. absent: Distended, Firm, Guarding, Rigid, Organomegaly, Rebound Additional comments: RUQ tenderness to palpation, RLQ colostomy C/D/I, green watery stool preesnt, stoma with pink hue - Extremities Exam Extremities Exam: Normal Inspection, Pedal Edema - Neurological Exam Neurological Exam: Alert, Awake - Psychiatric Exam Psychiatric exam: Normal Affect, Normal Mood - Skin Skin Exam: Dry, Intact, Normal Color, Warm Assessment and Plan - Assessment and Plan (Free Text) Assessment: 71 year old female with history of Hypertension, Diabetes, and Hyperlipidemia presenting with right upper abdomen pain. CT A/P IV contrast 12/07/16 showed gallstones and hepatic steatosis. Laboratory findings show improved hyperbilirubinemia and mildly elevated AST. Prior colonoscopy endorsed during hospitalization prior to colostomy surgery 37 years ago. No prior EGD. Plan: >Ultrasound-cholelithiasis with gallbladder neck stone, cholecystitis, no choledocholithiasis >surgery managing-MRCP cancelled, outpatient versus inpatient cholecystectomy >tolerating clear liquid diet >supportive care: pain control >thank you for opportunity to participate in the care of this patient <Bruce Peralta - Last Filed: 12/31/16 09:12> Objective - Vital Signs/Intake and Output Vital Signs (last 24 hours): Temp Pulse Resp BP Pulse Ox 97.9 F 74 20 131/82 96 12/31/16 08:09 12/31/16 08:09 12/31/16 08:09 12/31/16 08:09 12/31/16 08:09 - Medications Medications: Current Medications Fenofibrate (Tricor) 145 mg PO DAILY [facility] Last Admin: 12/30/16 09:10 Dose: 145 mg Dextrose/Sodium Chloride (Dextrose 5%/0.45% Ns 1000 Ml) 1,000 mls @ 75 mls/hr IV .[id number] [facility] Last Admin: 12/30/16 22:20 Dose: 75 mls/hr Piperacillin Sod/Tazobactam (Sod 3.375 gm/ Sodium Chloride) 100 mls @ 200 mls/ hr IVPB Q6H [facility] Last Admin: 12/31/16 05:08 Dose: 200 mls/hr Losartan Potassium (Cozaar) 25 mg PO DAILY [facility] Last Admin: 12/30/16 09:10 Dose: [facility] Last Admin: 12/30/16 17:13 Dose: 500 mg Morphine Sulfate (Morphine) 2 mg IVP Q4 PRN PRN Reason: Pain, moderate (4-7) Last Admin: 12/30/16 22:59 Dose: 2 mg Ondansetron HCl (Zofran Inj) 4 mg IVP Q6H PRN PRN Reason: Nausea/Vomiting Pantoprazole Sodium (Protonix Ec Tab) 40 mg PO DAILY [facility] Last Admin: 12/30/16 09:13 Dose: 40 mg Rosuvastatin Calcium (Crestor) 2.5 mg PO HS [facility] Last Admin: 12/30/16 22:18 Dose: 2.5 mg Sitagliptin Phosphate (Januvia) 50 mg PO BID [facility] Last Admin: 12/30/16 17:13 Dose: 50 mg - Labs Labs: PT 13.7 SECONDS (9.7-12.2) H 12/29/16 22:35 INR 1.2 12/29/16 22:35 APTT 31 SECONDS (21-34) 12/29/16 22:35 Attending/Attestation - Attestation I have personally seen and examined this patient.: Yes I have fully participated in the care of the patient.: Yes I have reviewed all pertinent clinical information, including history, physical exam and plan: Yes Notes (Text): 12/31/16 09:09 I have seen and examined patient with GI fellow. No acute events overnight, she is seen resting in bed comfortably. She continues to complain of RUQ abdominal pain, worse on movement and following meal consumption. She denies nausea, vomiting, fever/chills. Review of vitals from today are normal. DM / HTN Hyperlipidemia H/o partial colon resection, unclear reasons, s/p colostomy RUQ abdominal pain - acute cholecystitis - Liquid diet as tolerated - Continue with antibiotic therapy - LFTs normal, continue to monitor - Follow up surgical recommendations regarding possible cholecystectomy - No ongoing GI issues, will sign off case. Please reconsult as necessary, thank you.
--- NOTE | 2016-12-31 09:54 | CP.PCM.PN ---
<Renee Schmitt - Last Filed: 12/31/16 09:55> Subjective - Date & Time of Evaluation Date of Evaluation: 12/31/16 Time of Evaluation: 07:00 - Subjective Subjective: GENERAL SURGERY PROGRESS NOTE FOR DR. NESS Patient seen and examined at bedside. She has mild RUQ abdominal pain but states it is better than yesterday. She denies nausea or vomiting. She is tolerating her CLD, she denies nausea or vomiting. She is ambulating to the bathroom. Stool in ostomy bag. Objective - Vital Signs/Intake and Output Vital Signs (last 24 hours): Temp Pulse Resp BP Pulse Ox 97.9 F 74 20 131/82 96 12/31/16 08:09 12/31/16 08:09 12/31/16 08:09 12/31/16 08:09 12/31/16 08:09 - Medications Medications: Current Medications Fenofibrate (Tricor) 145 mg PO DAILY [facility] Last Admin: 12/30/16 09:10 Dose: 145 mg Dextrose/Sodium Chloride (Dextrose 5%/0.45% Ns 1000 Ml) 1,000 mls @ 75 mls/hr IV .[id number] [facility] Last Admin: 12/30/16 22:20 Dose: 75 mls/hr Piperacillin Sod/Tazobactam (Sod 3.375 gm/ Sodium Chloride) 100 mls @ 200 mls/ hr IVPB Q6H [facility] Last Admin: 12/31/16 05:08 Dose: 200 mls/hr Losartan Potassium (Cozaar) 25 mg PO DAILY [facility] Last Admin: 12/30/16 09:10 Dose: 25 mg Metformin HCl (Glucophage) 500 mg PO BIDCC [facility] Last Admin: 12/30/16 17:13 Dose: 500 mg Morphine Sulfate (Morphine) 2 mg IVP Q4 PRN PRN Reason: Pain, moderate (4-7) Last Admin: 12/30/16 22:59 Dose: 2 mg Ondansetron HCl (Zofran Inj) 4 mg IVP Q6H PRN PRN Reason: Nausea/Vomiting Pantoprazole Sodium (Protonix Ec Tab) 40 mg PO DAILY [facility] Last Admin: 12/30/16 09:13 Dose: 40 mg Rosuvastatin Calcium (Crestor) 2.5 mg PO HS [facility] Last Admin: 12/30/16 22:18 Dose: 2.5 mg Sitagliptin Phosphate (Januvia) 50 mg PO BID [facility] Last Admin: 12/30/16 17:13 Dose: 50 mg - Labs Labs: PT 13.7 SECONDS (9.7-12.2) H 12/29/16 22:35 INR 1.2 12/29/16 22:35 APTT 31 SECONDS (21-34) 12/29/16 22:35 - Constitutional Appears: Non-toxic, No Acute Distress - Head Exam Head Exam: ATRAUMATIC, NORMAL INSPECTION - Eye Exam Eye Exam: EOMI, Normal appearance - Respiratory Exam Respiratory Exam: NORMAL BREATHING PATTERN. absent: Respiratory Distress - Cardiovascular Exam Cardiovascular Exam: +S1, +S2 - GI/Abdominal Exam GI & Abdominal Exam: Soft, Tenderness (mild tenderness RUQ). absent: Distended , Firm, Guarding, Rigid, Rebound Additional comments: Ileostomy in place with stool in bag - Neurological Exam Neurological Exam: Alert, Awake, Oriented x3 - Psychiatric Exam Psychiatric exam: Normal Affect, Normal Mood - Skin Skin Exam: Dry, Normal Color, Warm Assessment and Plan - Assessment and Plan (Free Text) Assessment: 71yo F with PMHx of DM, HTN, cholelithiasis presented with RUQ abdominal pain and was found to have cholecystitis - Afebrile, VSS - Will FU AM labs - Hepatitis panel negative - GI signed off case - US: cholelithiasis, calculus impacted in gallbladder neck, marked thickening of gallbladder wall, up to 10mm, pericholecystic fluid, CBD 5mm. - Continue IV Zosyn, will treat patient with antibiotics for now and if continues to improve, will do outpatient elective cholecystectomy - If patient does not improve, will need impatient cholecystectomy - Clear liquid diet - Discussed plan with Dr. Grover Schmitt PGY-2 <Philip Franklin - Last Filed: 12/31/16 12:29> Objective - Vital Signs/Intake and Output Vital Signs (last 24 hours): Temp Pulse Resp BP Pulse Ox 97.9 F 74 20 131/82 96 12/31/16 08:09 12/31/16 08:09 12/31/16 08:09 12/31/16 08:09 12/31/16 08:09 - Medications Medications: Current Medications Fenofibrate (Tricor) 145 mg PO DAILY [facility] Last Admin: 12/31/16 11:50 Dose: 145 mg Dextrose/Sodium Chloride (Dextrose 5%/0.45% Ns 1000 Ml) 1,000 mls @ 75 mls/hr IV .[id number] [facility] Last Admin: 12/31/16 11:51 Dose: 75 mls/hr Piperacillin Sod/Tazobactam (Sod 3.375 gm/ Sodium Chloride) 100 mls @ 200 mls/ hr IVPB Q6H [facility] Last Admin: 12/31/16 11:19 Dose: 200 mls/hr Losartan Potassium (Cozaar) 25 mg PO DAILY [facility] Last Admin: 12/31/16 10:04 Dose: [facility] Last Admin: 12/31/16 10:04 Dose: 500 mg Morphine Sulfate (Morphine) 2 mg IVP Q4 PRN PRN Reason: Pain, moderate (4-7) Last Admin: 12/30/16 22:59 Dose: 2 mg Ondansetron HCl (Zofran Inj) 4 mg IVP Q6H PRN PRN Reason: Nausea/Vomiting Pantoprazole Sodium (Protonix Ec Tab) 40 mg PO DAILY [facility] Last Admin: 12/31/16 10:05 Dose: 40 mg Rosuvastatin Calcium (Crestor) 2.5 mg PO HS [facility] Last Admin: 12/30/16 22:18 Dose: 2.5 mg Sitagliptin Phosphate (Januvia) 50 mg PO BID [facility] Last Admin: 12/31/16 10:05 Dose: 50 mg - Labs Labs: 12/31/16 11:44 12/31/16 11:44 PT 13.7 SECONDS (9.7-12.2) H 12/29/16 22:35 INR 1.2 12/29/16 22:35 APTT 31 SECONDS (21-34) 12/29/16 22:35 Assessment and Plan - Assessment and Plan (Free Text) Assessment: Patient can go home on oral Abx and schedule operation outpatient, unless patient stays. Discussed with Dr. Grover Franklin, PGY1 <Devan Ness - Last Filed: 01/01/17 18:43> Objective - Vital Signs/Intake and Output Vital Signs (last 24 hours): Temp Pulse Resp BP Pulse Ox 97.9 F 73 20 124/63 98 01/01/17 15:46 01/01/17 15:46 01/01/17 15:46 01/01/17 15:46 01/01/17 15:46 Intake and Output: 01/01/17 01/01/17 06:59 18:59 Intake Total 1275 Output Total 100 Balance 1175 - Medications Medications: Current Medications Fenofibrate (Tricor) 145 mg PO DAILY [facility] Last Admin: 01/01/17 09:07 Dose: 145 mg Piperacillin Sod/Tazobactam (Sod 3.375 gm/ Sodium Chloride) 100 mls @ 200 mls/ hr IVPB Q6H [facility] Last Admin: 01/01/17 11:25 Dose: 200 mls/hr Losartan Potassium (Cozaar) 25 mg PO DAILY [facility] Last Admin: 01/01/17 09:08 Dose: 25 mg Metformin HCl (Glucophage) 500 mg PO BIDCC [facility] Last Admin: 01/01/17 07:33 Dose: 500 mg Ondansetron HCl (Zofran Inj) 4 mg IVP Q6H PRN PRN Reason: Nausea/Vomiting Pantoprazole Sodium (Protonix Ec Tab) 40 mg PO DAILY [facility] Last Admin: 01/01/17 09:08 Dose: 40 mg Rosuvastatin Calcium (Crestor) 2.5 mg PO HS [facility] Last Admin: 12/31/16 22:05 Dose: 2.5 mg Sitagliptin Phosphate (Januvia) 50 mg PO BID [facility] Last Admin: 01/01/17 09:08 Dose: 50 mg - Labs Labs: 12/31/16 11:44 12/31/16 11:44 PT 13.7 SECONDS (9.7-12.2) H 12/29/16 22:35 INR 1.2 12/29/16 22:35 APTT 31 SECONDS (21-34) 12/29/16 22:35 Attending/Attestation - Attestation I have personally seen and examined this patient.: Yes I have fully participated in the care of the patient.: Yes I have reviewed all pertinent clinical information, including history, physical exam and plan: Yes Notes (Text): 01/01/17 18:42 Pt was seen and examined at bedside on 12/31/16 Agree with above note and assessment Pt with Cholelithiasis with cholecystitis Pt is improved clinically Lap cholecystectomy as outpt Plan d.w pt in detail. C.w current mx
[2016-12-31] MEDS: Pantoprazole 40 mg EC Tab PO SCH (10:05)
[2016-12-31] MEDS: Dextrose 5%/0.45% NS 1,000 ML IV SCH (11:51)
[2016-12-31 12:01] LABS: HEMATOCRIT 33.9 % (34.0-47.0); MEAN CELL VOLUME 85.4 fL (81.0-99.0); MEAN CORPUSCULAR HEMOGLOBIN 29.1 pg (27.0-31.0); MEAN CORPUSCULAR HGB CONC 34.1 g/dL (33.0-37.0); MEAN PLATELET VOLUME 7.8 fL (7.2-11.7); RED CELL DISTRIBUTION WIDTH 13.1 % (11.5-14.5); WHITE BLOOD COUNT 6.1 K/uL (4.8-10.8)
[2016-12-31 12:02] LABS: CHLORIDE 102 mmol/L (98-107)
[2016-12-31 12:03] LABS: POTASSIUM 3.9 mmol/L (3.6-5.2); SODIUM 135 mmol/L (132-148)
[2016-12-31 12:05] LABS: ALB/GLOB RATIO 1.1 (1.0-2.1); AST/SGOT 24 U/L (14-36); BILIRUBIN,TOTAL 0.7 mg/dL (0.2-1.3); CARBON DIOXIDE 24 mmol/L (22-30); GFR AFRICAN-AMERICAN > 60; TOTAL PROTEIN 6.1 g/dL (6.3-8.3)
[2016-12-31 12:06] LABS: ALKALINE PHOSPHATASE 54 U/L (38-126); ALT/SGPT 31 U/L (9-52); BLOOD UREA NITROGEN 8 mg/dL (7-17); CALCIUM 8.5 mg/dl (8.6-10.4); GLUCOSE,RANDOM 166 mg/dL (65-105)
--- NOTE | 2016-12-31 13:25 | CP.PCM.PN ---
Subjective - Date & Time of Evaluation Date of Evaluation: 12/31/16 Time of Evaluation: 12:20 - Subjective Subjective: clinically same Objective - Vital Signs/Intake and Output Vital Signs (last 24 hours): Temp Pulse Resp BP Pulse Ox 97.9 F 74 20 131/82 96 12/31/16 08:09 12/31/16 08:09 12/31/16 08:09 12/31/16 08:09 12/31/16 08:09 - Medications Medications: Current Medications Fenofibrate (Tricor) 145 mg PO DAILY [facility] Last Admin: 12/31/16 11:50 Dose: 145 mg Dextrose/Sodium Chloride (Dextrose 5%/0.45% Ns 1000 Ml) 1,000 mls @ 75 mls/hr IV .[id number] [facility] Last Admin: 12/31/16 11:51 Dose: 75 mls/hr Piperacillin Sod/Tazobactam (Sod 3.375 gm/ Sodium Chloride) 100 mls @ 200 mls/ hr IVPB Q6H [facility] Last Admin: 12/31/16 11:19 Dose: 200 mls/hr Losartan Potassium (Cozaar) 25 mg PO DAILY [facility] Last Admin: 12/31/16 10:04 Dose: 25 mg Metformin HCl (Glucophage) 500 mg PO BIDCC [facility] Last Admin: 12/31/16 10:04 Dose: 500 mg Morphine Sulfate (Morphine) 2 mg IVP Q4 PRN PRN Reason: Pain, moderate (4-7) Last Admin: 12/30/16 22:59 Dose: 2 mg Ondansetron HCl (Zofran Inj) 4 mg IVP Q6H PRN PRN Reason: Nausea/Vomiting Pantoprazole Sodium (Protonix Ec Tab) 40 mg PO DAILY [facility] Last Admin: 12/31/16 10:05 Dose: 40 mg Rosuvastatin Calcium (Crestor) 2.5 mg PO HS [facility] Last Admin: 12/30/16 22:18 Dose: 2.5 mg Sitagliptin Phosphate (Januvia) 50 mg PO BID [facility] Last Admin: 12/31/16 10:05 Dose: 50 mg - Labs Labs: 12/31/16 11:44 12/31/16 11:44 PT 13.7 SECONDS (9.7-12.2) H 12/29/16 22:35 INR 1.2 12/29/16 22:35 APTT 31 SECONDS (21-34) 12/29/16 22:35 - Constitutional Appears: Well - Head Exam Head Exam: ATRAUMATIC, NORMAL INSPECTION, NORMOCEPHALIC - Eye Exam Eye Exam: EOMI, Normal appearance, PERRL Pupil Exam: NORMAL ACCOMODATION, PERRL - ENT Exam ENT Exam: Mucous Membranes Moist, Normal Exam - Neck Exam Neck Exam: Full ROM, Normal Inspection. absent: Lymphadenopathy - Respiratory Exam Respiratory Exam: Decreased Breath Sounds - Cardiovascular Exam Cardiovascular Exam: REGULAR RHYTHM, +S1, +S2 - GI/Abdominal Exam GI & Abdominal Exam: Soft, Diminished Bowel Sounds - Rectal Exam Rectal Exam: Deferred Assessment and Plan (1) Abdominal pain Status: Acute (2) Bronchitis Status: Acute (3) Headache Status: Acute (4) Influenza-like illness Status: Acute (5) Jaundice Status: Acute (6) Removal of andria Status: Acute (7) Syncope Status: Acute (8) UTI (urinary tract infection) Status: Acute - Assessment and Plan (Free Text) Plan: Follow-up with GI Follow-up with general surgeon [facility] IV fluid IV antibiotic Cozaar Morphine Zofran Proton
[2016-12-31] MEDS: Rosuvastatin Calcium 2.5 mg Tab PO SCH (22:05)
[2017-01-01] MEDS: Piperacillin/Tazobact 3.375 GM in Sodium Chloride 100 ML IVPB SCH ×4 (05:00→22:10)
[2017-01-01] MEDS: Pantoprazole 40 mg EC Tab PO SCH (09:08)
--- NOTE | 2017-01-01 11:55 | CP.PCM.PN ---
<Renee Schmitt - Last Filed: 01/01/17 12:35> Subjective - Date & Time of Evaluation Date of Evaluation: 01/01/17 Time of Evaluation: 07:00 - Subjective Subjective: GENERAL SURGERY PROGRESS NOTE FOR DR. NESS Patient seen and examined at bedside. She does not have any abdominal pain unless someone is palpating her abdomen. She is tolerating her diet, she denies nausea or vomiting. Stool in ostomy bag. Objective - Vital Signs/Intake and Output Vital Signs (last 24 hours): Temp Pulse Resp BP Pulse Ox 97.8 F 71 18 108/64 94 L 01/01/17 07:30 01/01/17 07:30 01/01/17 07:30 01/01/17 07:30 01/01/17 07:30 Intake and Output: 01/01/17 01/01/17 06:59 18:59 Intake Total 1275 Output Total 100 Balance 1175 - Medications Medications: Current Medications Fenofibrate (Tricor) 145 mg PO DAILY [facility] Last Admin: 01/01/17 09:07 Dose: 145 mg Piperacillin Sod/Tazobactam (Sod 3.375 gm/ Sodium Chloride) 100 mls @ 200 mls/ hr IVPB Q6H [facility] Last Admin: 01/01/17 11:25 Dose: 200 mls/hr Losartan Potassium (Cozaar) 25 mg PO DAILY [facility] Last Admin: 01/01/17 09:08 Dose: 25 mg Metformin HCl (Glucophage) 500 mg PO BIDCC [facility] Last Admin: 01/01/17 07:33 Dose: 500 mg Morphine Sulfate (Morphine) 2 mg IVP Q4 PRN PRN Reason: Pain, moderate (4-7) Last Admin: 12/31/16 22:24 Dose: 2 mg Ondansetron HCl (Zofran Inj) 4 mg IVP Q6H PRN PRN Reason: Nausea/Vomiting Pantoprazole Sodium (Protonix Ec Tab) 40 mg PO DAILY [facility] Last Admin: 01/01/17 09:08 Dose: 40 mg Rosuvastatin Calcium (Crestor) 2.5 mg PO HS [facility] Last Admin: 12/31/16 22:05 Dose: 2.5 mg Sitagliptin Phosphate (Januvia) 50 mg PO BID [facility] Last Admin: 01/01/17 09:08 Dose: 50 mg - Labs Labs: 12/31/16 11:44 12/31/16 11:44 PT 13.7 SECONDS (9.7-12.2) H 12/29/16 22:35 INR 1.2 12/29/16 22:35 APTT 31 SECONDS (21-34) 12/29/16 22:35 - Constitutional Appears: Non-toxic, No Acute Distress - Respiratory Exam Respiratory Exam: NORMAL BREATHING PATTERN. absent: Respiratory Distress - Cardiovascular Exam Cardiovascular Exam: +S1, +S2 - GI/Abdominal Exam GI & Abdominal Exam: Soft, Tenderness (mild tender in RUQ). absent: Distended, Firm, Guarding, Rigid, Rebound Additional comments: Ileostomy in place with stool in bag - Neurological Exam Neurological Exam: Alert, Awake, Oriented x3 - Psychiatric Exam Psychiatric exam: Normal Affect, Normal Mood - Skin Skin Exam: Dry, Normal Color, Warm Assessment and Plan - Assessment and Plan (Free Text) Assessment: 71yo F with PMHx of DM, HTN, cholelithiasis presented with RUQ abdominal pain and was found to have cholecystitis - Afebrile, VSS - Will FU AM labs - Patient can go home on oral Abx to follow up with Dr. Ness in his office to schedule outpatient elective cholecystectomy - Discussed plan with Dr. Grover Schmitt PGY-2 <Devan Ness - Last Filed: 01/01/17 19:00> Objective - Vital Signs/Intake and Output Vital Signs (last 24 hours): Temp Pulse Resp BP Pulse Ox 97.9 F 73 20 124/63 98 01/01/17 15:46 01/01/17 15:46 01/01/17 15:46 01/01/17 15:46 01/01/17 15:46 Intake and Output: 01/01/17 01/01/17 06:59 18:59 Intake Total 1275 Output Total 100 Balance 1175 - Medications Medications: Current Medications Fenofibrate (Tricor) 145 mg PO DAILY [facility] Last Admin: 01/01/17 09:07 Dose: 145 mg Piperacillin Sod/Tazobactam (Sod 3.375 gm/ Sodium Chloride) 100 mls @ 200 mls/ hr IVPB Q6H [facility] Last Admin: 01/01/17 18:45 Dose: 200 mls/hr Losartan Potassium (Cozaar) 25 mg PO DAILY [facility] Last Admin: 01/01/17 09:08 Dose: 25 mg Metformin HCl (Glucophage) 500 mg PO BIDCC [facility] Last Admin: 01/01/17 18:45 Dose: 500 mg Ondansetron HCl (Zofran Inj) 4 mg IVP Q6H PRN PRN Reason: Nausea/Vomiting Pantoprazole Sodium (Protonix Ec Tab) 40 mg PO DAILY [facility] Last Admin: 01/01/17 09:08 Dose: 40 mg Rosuvastatin Calcium (Crestor) 2.5 mg PO HS [facility] Last Admin: 12/31/16 22:05 Dose: 2.5 mg Sitagliptin Phosphate (Januvia) 50 mg PO BID [facility] Last Admin: 01/01/17 18:45 Dose: 50 mg - Labs Labs: 12/31/16 11:44 12/31/16 11:44 PT 13.7 SECONDS (9.7-12.2) H 12/29/16 22:35 INR 1.2 12/29/16 22:35 APTT 31 SECONDS (21-34) 12/29/16 22:35 Attending/Attestation - Attestation I have personally seen and examined this patient.: Yes I have fully participated in the care of the patient.: Yes I have reviewed all pertinent clinical information, including history, physical exam and plan: Yes Notes (Text): 01/01/17 19:00 01/01/17 18:43 Pt was seen and examined at bedside on 01/01/17 Agree with above note and assessment Pt with Cholelithiasis with Cholecystitis Pt is asymptomatic at present Lap Cholecystectomy as outpt PO antibiotics Plan [email or web address] pt in detail. CGiovaniw current mx
--- NOTE | 2017-01-01 18:18 | CP.PCM.PN ---
Subjective - Date & Time of Evaluation Date of Evaluation: 01/01/17 Time of Evaluation: 11:40 - Subjective Subjective: clinically same Objective - Vital Signs/Intake and Output Vital Signs (last 24 hours): Temp Pulse Resp BP Pulse Ox 97.9 F 73 20 124/63 98 01/01/17 15:46 01/01/17 15:46 01/01/17 15:46 01/01/17 15:46 01/01/17 15:46 Intake and Output: 01/01/17 01/01/17 06:59 18:59 Intake Total 1275 Output Total 100 Balance 1175 - Medications Medications: Current Medications Fenofibrate (Tricor) 145 mg PO DAILY [facility] Last Admin: 01/01/17 09:07 Dose: 145 mg Piperacillin Sod/Tazobactam (Sod 3.375 gm/ Sodium Chloride) 100 mls @ 200 mls/ hr IVPB Q6H [facility] Last Admin: 01/01/17 11:25 Dose: 200 mls/hr Losartan Potassium (Cozaar) 25 mg PO DAILY [facility] Last Admin: 01/01/17 09:08 Dose: 25 mg Metformin HCl (Glucophage) 500 mg PO BIDCC [facility] Last Admin: 01/01/17 07:33 Dose: 500 mg Ondansetron HCl (Zofran Inj) 4 mg IVP Q6H PRN PRN Reason: Nausea/Vomiting Pantoprazole Sodium (Protonix Ec Tab) 40 mg PO DAILY [facility] Last Admin: 01/01/17 09:08 Dose: 40 mg Rosuvastatin Calcium (Crestor) 2.5 mg PO HS [facility] Last Admin: 12/31/16 22:05 Dose: 2.5 mg Sitagliptin Phosphate (Januvia) 50 mg PO BID [facility] Last Admin: 01/01/17 09:08 Dose: 50 mg - Labs Labs: 12/31/16 11:44 12/31/16 11:44 PT 13.7 SECONDS (9.7-12.2) H 12/29/16 22:35 INR 1.2 12/29/16 22:35 APTT 31 SECONDS (21-34) 12/29/16 22:35 - Constitutional Appears: Well - Head Exam Head Exam: ATRAUMATIC, NORMAL INSPECTION, NORMOCEPHALIC - Eye Exam Eye Exam: EOMI, Normal appearance, PERRL Pupil Exam: NORMAL ACCOMODATION, PERRL - ENT Exam ENT Exam: Mucous Membranes Moist, Normal Exam - Neck Exam Neck Exam: Full ROM, Normal Inspection. absent: Lymphadenopathy - Respiratory Exam Respiratory Exam: Decreased Breath Sounds - Cardiovascular Exam Cardiovascular Exam: REGULAR RHYTHM, +S1, +S2 - GI/Abdominal Exam GI & Abdominal Exam: Soft, Diminished Bowel Sounds - Rectal Exam Rectal Exam: Deferred Assessment and Plan (1) Abdominal pain Status: Acute (2) Bronchitis Status: Acute (3) Headache Status: Acute (4) Influenza-like illness Status: Acute (5) Jaundice Status: Acute (6) Removal of andria Status: Acute (7) Syncope Status: Acute (8) UTI (urinary tract infection) Status: Acute - Assessment and Plan (Free Text) Plan: Follow-up with GI Follow-up with general surgeon [facility] IV fluid IV antibiotic Cozaar Morphine Zofran Proton
[2017-01-01] MEDS: Rosuvastatin Calcium 2.5 mg Tab PO SCH (21:40)
[2017-01-02] MEDS: Piperacillin/Tazobact 3.375 GM in Sodium Chloride 100 ML IVPB SCH ×2 (05:35→10:08)
[2017-01-02 08:15] VITALS: O2SAT 95
--- NOTE | 2017-01-02 08:45 | CP.PCM.PN ---
<Conrad Stewart - Last Filed: 01/02/17 08:42> Subjective - Date & Time of Evaluation Date of Evaluation: 01/02/17 Time of Evaluation: 08:42 - Subjective Subjective: Surgery: Dr. Ness Pt seen and examined. Resting comfortably in bed. No pain at rest. Tolerating CLD. No N/V/D. No F/C Objective - Vital Signs/Intake and Output Vital Signs (last 24 hours): Temp Pulse Resp BP Pulse Ox 97.4 F L 67 18 114/60 95 01/02/17 07:20 01/02/17 07:20 01/02/17 07:20 01/02/17 07:20 01/02/17 07:20 Intake and Output: 01/02/17 01/02/17 06:59 18:59 Intake Total 250 Balance 250 - Medications Medications: Current Medications Fenofibrate (Tricor) 145 mg PO DAILY [facility] Last Admin: 01/01/17 09:07 Dose: 145 mg Piperacillin Sod/Tazobactam (Sod 3.375 gm/ Sodium Chloride) 100 mls @ 200 mls/ hr IVPB Q6H [facility] Last Admin: 01/02/17 05:35 Dose: 200 mls/hr Losartan Potassium (Cozaar) 25 mg PO DAILY [facility] Last Admin: 01/01/17 09:08 Dose: 25 mg Metformin HCl (Glucophage) 500 mg PO BIDCC [facility] Last Admin: 01/02/17 07:32 Dose: 500 mg Ondansetron HCl (Zofran Inj) 4 mg IVP Q6H PRN PRN Reason: Nausea/Vomiting Pantoprazole Sodium (Protonix Ec Tab) 40 mg PO DAILY [facility] Last Admin: 01/01/17 09:08 Dose: 40 mg Rosuvastatin Calcium (Crestor) 2.5 mg PO HS [facility] Last Admin: 01/01/17 21:40 Dose: 2.5 mg Sitagliptin Phosphate (Januvia) 50 mg PO BID [facility] Last Admin: 01/01/17 18:45 Dose: 50 mg - Labs Labs: 12/31/16 11:44 12/31/16 11:44 PT 13.7 SECONDS (9.7-12.2) H 12/29/16 22:35 INR 1.2 12/29/16 22:35 APTT 31 SECONDS (21-34) 12/29/16 22:35 - Constitutional Appears: Non-toxic, No Acute Distress - Head Exam Head Exam: ATRAUMATIC, NORMOCEPHALIC - Eye Exam Eye Exam: EOMI - ENT Exam ENT Exam: Mucous Membranes Moist - Neck Exam Neck Exam: Full ROM - Respiratory Exam Respiratory Exam: NORMAL BREATHING PATTERN. absent: Accessory Muscle Use, Respiratory Distress - GI/Abdominal Exam GI & Abdominal Exam: Soft, Tenderness (RUQ, +Estrada). absent: Distended, Firm, Guarding, Rigid, Hernia, Rebound - Neurological Exam Neurological Exam: Alert, Awake, Oriented x3 Assessment and Plan - Assessment and Plan (Free Text) Assessment: 71F w. cholecystitis -Clinically improving -will advance diet -if diet tolerated pt clear for d/c from surgical standpoint w. PO abx -will plan for outpatient elective olga -f/u AM labs -d/w attending Pat PGY2 <Devan Ness - Last Filed: 01/02/17 10:01> Objective - Vital Signs/Intake and Output Vital Signs (last 24 hours): Temp Pulse Resp BP Pulse Ox 97.4 F L 67 18 114/60 95 01/02/17 07:20 01/02/17 07:20 01/02/17 07:20 01/02/17 07:20 01/02/17 07:20 Intake and Output: 01/02/17 01/02/17 06:59 18:59 Intake Total 250 Balance 250 - Medications Medications: Current Medications Fenofibrate (Tricor) 145 mg PO DAILY [facility] Last Admin: 01/02/17 09:24 Dose: 145 mg Piperacillin Sod/Tazobactam (Sod 3.375 gm/ Sodium Chloride) 100 mls @ 200 mls/ hr IVPB Q6H [facility] Last Admin: 01/02/17 05:35 Dose: 200 mls/hr Losartan Potassium (Cozaar) 25 mg PO DAILY [facility] Last Admin: 01/02/17 09:24 Dose: 25 mg Metformin HCl (Glucophage) 500 mg PO BIDCC [facility] Last Admin: 01/02/17 07:32 Dose: 500 mg Ondansetron HCl (Zofran Inj) 4 mg IVP Q6H PRN PRN Reason: Nausea/Vomiting Pantoprazole Sodium (Protonix Ec Tab) 40 mg PO DAILY [facility] Last Admin: 01/02/17 09:24 Dose: 40 mg Rosuvastatin Calcium (Crestor) 2.5 mg PO HS [facility] Last Admin: 01/01/17 21:40 Dose: 2.5 mg Sitagliptin Phosphate (Januvia) 50 mg PO BID [facility] Last Admin: 01/02/17 09:24 Dose: 50 mg - Labs Labs: 12/31/16 11:44 12/31/16 11:44 PT 13.7 SECONDS (9.7-12.2) H 12/29/16 22:35 INR 1.2 12/29/16 22:35 APTT 31 SECONDS (21-34) 12/29/16 22:35 Attending/Attestation - Attestation I have personally seen and examined this patient.: Yes I have fully participated in the care of the patient.: Yes I have reviewed all pertinent clinical information, including history, physical exam and plan: Yes Notes (Text): 01/02/17 10:00 Pt was seen and examined at bedside on 01/02/17 Agree with above note and assessment Pt is completely asymptomatic at present f.U as out pt Will schedule Out pt Lap cholecystectomy plan d.w pt and PMD in detail
[2017-01-02] MEDS: Pantoprazole 40 mg EC Tab PO SCH (09:24)
[2017-01-02 12:21] LABS: BASO % 0.8 % (0.0-2.0); EOS % 0.3 % (0.0-4.0); HEMATOCRIT 35.7 % (34.0-47.0); LYMPH # 1.3 K/uL (1.0-4.3); LYMPH % 27.2 % (20.0-40.0); MEAN CELL VOLUME 84.3 fL (81.0-99.0); MEAN CORPUSCULAR HEMOGLOBIN 28.9 pg (27.0-31.0); MEAN CORPUSCULAR HGB CONC 34.3 g/dL (33.0-37.0); MEAN PLATELET VOLUME 7.4 fL (7.2-11.7); MONO # 0.5 K/uL (0.0-0.8); MONO % 10.7 % (0.0-10.0); RED CELL DISTRIBUTION WIDTH 12.8 % (11.5-14.5); WHITE BLOOD COUNT 4.8 K/uL (4.8-10.8)
--- NOTE | 2017-01-02 12:40 | CARD ---
APPROVED REPORT EKG Measurement Heart [id number] <Conclusion> Normal sinus rhythm T wave abnormality, consider anterior ischemia Abnormal ECG
[2017-01-02 12:50] LABS: CHLORIDE 102 mmol/L (98-107); POTASSIUM 3.7 mmol/L (3.6-5.2); SODIUM 138 mmol/L (132-148)
[2017-01-02 12:52] LABS: GFR AFRICAN-AMERICAN > 60
[2017-01-02 12:53] LABS: ALB/GLOB RATIO 1.1 (1.0-2.1); ALKALINE PHOSPHATASE 63 U/L (38-126); ALT/SGPT 26 U/L (9-52); AST/SGOT 60 U/L (14-36); BILIRUBIN,TOTAL 0.7 mg/dL (0.2-1.3); BLOOD UREA NITROGEN 7 mg/dL (7-17); CARBON DIOXIDE 25 mmol/L (22-30); GLUCOSE,RANDOM 145 mg/dL (65-105); TOTAL PROTEIN 6.9 g/dL (6.3-8.3)
--- NOTE | 2017-01-02 15:12 | CP.PCM.PN ---
Subjective - Date & Time of Evaluation Date of Evaluation: 01/02/17 Time of Evaluation: 15:05 - Subjective Subjective: 71 Y/O FEMALE SEEN AND EXAMINED TODAY BY DR Rafat WRIGHT PMHX HTN, DM, HYPERLIPIDEMIA, PARTIAL COLON RESECTION, S/P COLOSTOMY ADMITTED FOR RUQ PAIN CT ABD/PELIVS- + GALLSTONES, HEPATIC STEATOSIS IMPROVED CLINICALLY TOLERATING DIET DENIES ABD PAIN, N/V/D CLEARED BY DR Rafat WRIGHT AND DR HOWARD PT EDUCATED TO F/U W/ DR WRIGHT, DR HOWARD IN THE OFFICE FOR OUPT ELECTIVE JAMES AGREE, VERBALIZE UNDERSTANDING Objective - Vital Signs/Intake and Output Vital Signs (last 24 hours): Temp Pulse Resp BP Pulse Ox 97.4 F L 67 18 114/60 95 01/02/17 07:20 01/02/17 07:20 01/02/17 07:20 01/02/17 07:20 01/02/17 07:20 Intake and Output: 01/02/17 01/02/17 06:59 18:59 Intake Total 250 Balance 250 - Medications Medications: Current Medications Fenofibrate (Tricor) 145 mg PO DAILY [facility] Last Admin: 01/02/17 09:24 Dose: 145 mg Piperacillin Sod/Tazobactam (Sod 3.375 gm/ Sodium Chloride) 100 mls @ 200 mls/ hr IVPB Q6H [facility] Last Admin: 01/02/17 10:08 Dose: 200 mls/hr Losartan Potassium (Cozaar) 25 mg PO DAILY [facility] Last Admin: 01/02/17 09:24 Dose: 25 mg Metformin HCl (Glucophage) 500 mg PO BIDCC [facility] Last Admin: 01/02/17 07:32 Dose: 500 mg Ondansetron HCl (Zofran Inj) 4 mg IVP Q6H PRN PRN Reason: Nausea/Vomiting Pantoprazole Sodium (Protonix Ec Tab) 40 mg PO DAILY [facility] Last Admin: 01/02/17 09:24 Dose: 40 mg Rosuvastatin Calcium (Crestor) 2.5 mg PO HS [facility] Last Admin: 01/01/17 21:40 Dose: 2.5 mg Sitagliptin Phosphate (Januvia) 50 mg PO BID [facility] Last Admin: 01/02/17 09:24 Dose: 50 mg - Labs Labs: 01/02/17 12:05 01/02/17 12:31 PT 13.7 SECONDS (9.7-12.2) H 12/29/16 22:35 INR 1.2 12/29/16 22:35 APTT 31 SECONDS (21-34) 12/29/16 22:35
[2017-01-02 15:44] VITALS: BP 103/76; PULSE 85; RESP 20; TEMP 98.1
--- NOTE | 2017-01-02 15:47 | CP.PCM.PN ---
Subjective - Date & Time of Evaluation Date of Evaluation: 01/02/17 Time of Evaluation: 11:20 - Subjective Subjective: clinically same Objective - Vital Signs/Intake and Output Vital Signs (last 24 hours): Temp Pulse Resp BP Pulse Ox 98.1 F 85 20 103/76 95 01/02/17 15:42 01/02/17 15:42 01/02/17 15:42 01/02/17 15:42 01/02/17 07:20 Intake and Output: 01/02/17 01/02/17 06:59 18:59 Intake Total 250 Balance 250 - Medications Medications: Current Medications Fenofibrate (Tricor) 145 mg PO DAILY [facility] Last Admin: 01/02/17 09:24 Dose: 145 mg Piperacillin Sod/Tazobactam (Sod 3.375 gm/ Sodium Chloride) 100 mls @ 200 mls/ hr IVPB Q6H [facility] Last Admin: 01/02/17 10:08 Dose: 200 mls/hr Losartan Potassium (Cozaar) 25 mg PO DAILY [facility] Last Admin: 01/02/17 09:24 Dose: 25 mg Metformin HCl (Glucophage) 500 mg PO BIDCC [facility] Last Admin: 01/02/17 07:32 Dose: 500 mg Ondansetron HCl (Zofran Inj) 4 mg IVP Q6H PRN PRN Reason: Nausea/Vomiting Pantoprazole Sodium (Protonix Ec Tab) 40 mg PO DAILY [facility] Last Admin: 01/02/17 09:24 Dose: 40 mg Rosuvastatin Calcium (Crestor) 2.5 mg PO HS [facility] Last Admin: 01/01/17 21:40 Dose: 2.5 mg Sitagliptin Phosphate (Januvia) 50 mg PO BID [facility] Last Admin: 01/02/17 09:24 Dose: 50 mg - Labs Labs: 01/02/17 12:05 01/02/17 12:31 PT 13.7 SECONDS (9.7-12.2) H 12/29/16 22:35 INR 1.2 12/29/16 22:35 APTT 31 SECONDS (21-34) 12/29/16 22:35 - Constitutional Appears: Well - Head Exam Head Exam: ATRAUMATIC, NORMAL INSPECTION, NORMOCEPHALIC - Eye Exam Eye Exam: EOMI, Normal appearance, PERRL Pupil Exam: NORMAL ACCOMODATION, PERRL - ENT Exam ENT Exam: Mucous Membranes Moist, Normal Exam - Neck Exam Neck Exam: Full ROM, Normal Inspection. absent: Lymphadenopathy - Respiratory Exam Respiratory Exam: Decreased Breath Sounds - Cardiovascular Exam Cardiovascular Exam: REGULAR RHYTHM, +S1, +S2 - GI/Abdominal Exam GI & Abdominal Exam: Soft, Diminished Bowel Sounds - Rectal Exam Rectal Exam: Deferred Assessment and Plan (1) Abdominal pain Status: Acute (2) Bronchitis Status: Acute (3) Headache Status: Acute (4) Influenza-like illness Status: Acute (5) Jaundice Status: Acute (6) Removal of andria Status: Acute (7) Syncope Status: Acute (8) UTI (urinary tract infection) Status: Acute - Assessment and Plan (Free Text) Plan: Patient to be discharged home today Continue medication as prescribed Follow-up with me in 3-5 days Follow-up with general surgeon in the office in 3-5 days.
--- NOTE | 2017-01-03 12:32 | US ---
HISTORY: History non-existent abdominal pain COMPARISON: None. TECHNIQUE: Sonographic evaluation of the abdomen. FINDINGS: LIVER: Measures 17.2 cm. Diffusely increased echogenicity of the liver parenchyma. No mass. No intrahepatic bile duct dilatation. GALLBLADDER: Cholelithiasis with calculus impacted in gallbladder neck. . Markedly thickened gallbladder wall, up to 10 mm. Pericholecystic fluid noted. Positive sonographic Estrada sign. COMMON BILE DUCT: Measures 5 mm. No stones. No dilatation. PANCREAS: Unremarkable as visualized. No mass. No ductal dilatation. RIGHT KIDNEY: Measures 9.0cm. Normal echogenicity. No calculus, mass, or hydronephrosis. LEFT KIDNEY: Measures 10.4cm. Normal echogenicity. No calculus, mass, or hydronephrosis. SPLEEN: Normal in size and contour. No mass. AORTA: No aneurysmal dilatation. IVC: Unremarkable. OTHER FINDINGS: Evaluation of right lower quadrant demonstrates no mass or fluid collection. IMPRESSION: Findings concerning for acute cholecystitis. Impacted gallstone in gallbladder neck with thickened gallbladder wall, pericholecystic fluid and positive sonographic Estrada sign. Fatty infiltration of the liver. Otherwise unremarkable.
== END 2017-01-02 17:30 | disposition home or self-care (01) | DRG 445 ==
LOC: C.ER 03:35 → C.9E 06:24 → C.5T 06:57 → OBSVTOIN 12-30 15:51 → C.6T 12-31 06:40
PROVIDERS: ADMIT Internal Medicine Nephrology; ATTEND Internal Medicine Nephrology
DX: K80.00 Calculus of gallbladder with acute cholecystitis without obstruction (principal); N39.0 Urinary tract infection, site not specified; K76.0 Fatty (change of) liver, not elsewhere classified; I10 Essential (primary) hypertension; B96.20 Unspecified Escherichia coli [E. coli] as the cause of diseases classified elsewhere; E11.9 Type 2 diabetes mellitus without complications; E78.5 Hyperlipidemia, unspecified; Z93.3 Colostomy status; Z87.442 Personal history of urinary calculi; Z90.49 Acquired absence of other specified parts of digestive tract; Z87.19 Personal history of other diseases of the digestive system; Z87.440 Personal history of urinary (tract) infections